=== PATIENT | female | born 1980 | race African-American/Black ===

== ENCOUNTER → 2017-03-05 | Outpatient (CLI) | payer OTHER ==
--- NOTE | 2017-03-05 09:30 | US ---
EXAMINATION TYPE: US pelvic complete DATE OF EXAM: 03/05/2017 8:51 AM COMPARISON: 05/04/2016 CLINICAL HISTORY: N92.6 Irreg Menses,R10.9 R Flank pain, R11.0 Nause. Irregular menses x 1 month, gra rajinder 6, para 4, 1, miscarriage 1, history of and tubal ligation, obese patient TECHNIQUE: Transvaginal (TV) and Transabdominal (TA) Date of LMP: 1 month ago EXAM MEASUREMENTS: Uterus: 10.1 x 5.9 x 6.5 cm Endometrial Stripe: 1.5 cm Right Ovary: 3.7 x 3.3 x 2.4 cm Left Ovary: 2.3 x 2.0 x 1.4 cm 1. Uterus: anteverted, slightly enlarged at 10.1cm, multiple nabothian cysts, heterogeneous echogeni [place] without any definite lesions seen at this time 2. Endometrium: thickened at 1.5cm, small amount of fluid seen in endocervical canal 3. Right Ovary: 2.5 x 2.1 x 2.2cm cystic area 4. Left Ovary: wnl 5. Bilateral Adnexa: wnl 6. Posterior cul-de-sac: wnl Bilateral ovaries not seen on transvaginal exam, patient had trouble tolerating the pressure from t ransvaginal probe IMPRESSION: 1. Endometrial thickening with a small amount of endometrial fluid. 2. Right ovarian cyst likely functional in nature.
--- NOTE | 2017-03-05 09:48 | US ---
EXAMINATION TYPE: US abdomen complete DATE OF EXAM: 03/05/2017 9:12 AM COMPARISON: US CLINICAL HISTORY: N92.6 Irreg Menses,R10.9 R Flank pain, R11.0 Nause. Intermittent right flank pain, obese patient EXAM MEASUREMENTS: Liver Length: 16.8 cm Gallbladder Wall: 0.2 cm CBD: 0.3 cm Spleen: 9.4 cm Right Kidney: 10.3 x 4.5 x 4.9 cm Left Kidney: 10.7 x 5.7 x 5.1 cm Pancreas: visualized portions wnl, tail obscured by overlying midline bowel gas Liver: slightly heterogeneous echogenicity without any definite lesions seen at this time Gallbladder: wnl Evidence for sonographic Frankel's sign: no CBD: visualized portions wnl, limited by overlying bowel gas Spleen: visualized portions wnl, limited by rib shadowing and overlying bowel gas Right Kidney: visualized portions wnl, limited by rib shadowing and overlying bowel gas Left Kidney: visualized portions wnl, limited by rib shadowing and overlying bowel gas Upper IVC: wnl Abd Aorta: visualized portions wnl, limited by overlying midline bowel gas The liver is mildly heterogenous. The intrahepatic portion of the IVC and proximal abdominal aorta ar e within normal limits. There is no evidence of cholelithiasis. Common bile duct is unremarkable. The visualized portions of the pancreas are homogenous. The spleen is unremarkable. Kidneys are sym metric and free of hydronephrosis. No renal lesions are seen. IMPRESSION: 1. Fatty hepatic infiltration.
== END | disposition home or self-care (01) ==
LOC: RADUSWWP 08:23
PROVIDERS: ATTEND Family Medicine
DX: N83.201 Unspecified ovarian cyst, right side (principal); R93.8 Abnormal findings on diagnostic imaging of other specified body structures; N92.6 Irregular menstruation, unspecified; R11.0 Nausea; K76.0 Fatty (change of) liver, not elsewhere classified
CPT/HCPCS: 76700; 76830; 76856

== ENCOUNTER 2018-03-30 19:56 | Emergency (ER) | payer MEDICARE, OTHER ==
[2018-03-30 20:05] VITALS: BP 139/86; PULSE 90; RESP 20; TEMP 98.4
--- NOTE | 2018-03-30 21:10 | ED ---
General Adult HPI - General Chief complaint: Dental/Oral Stated complaint: Dental pain Time Seen by Provider: 03/30/18 20:27 Source: patient, family, RN notes reviewed Mode of arrival: ambulatory Limitations: no limitations - History of Present Illness Initial comments: 37-year-old female presented to the emergency department for a chief complaint of tooth pain 3 days. Patient states she started noticing the pain and made an appointment with a dentist for 4 days from now. Patient still has the appointment. She states the pain is now throbbing and she wanted to get it checked out. Patient denies fevers or chills at home. Patient denies any pain or stiffness in the neck. Patient denies any swelling in the neck or face. Patient has no other complaints at this time including shortness of breath, chest pain, abdominal pain, nausea or vomiting, headache, or visual changes. - Related Data Home Medications Medication Instructions Recorded Confirmed Hydrocodone/Acetaminophen [Vicodin 1 each PO Q12HR PRN 01/16/15 03/30/18 Es 7.5-300 mg Tablet] Ibuprofen [Motrin] 600 mg PO Q8HR PRN 05/12/15 03/30/18 Previous Rx's Medication Instructions Recorded Fluticasone Nasal [place] [Flonase 2 spr EA NOSTRIL DAILY #1 bottle 03/24/16 Nasal [place]] Ibuprofen [Motrin] 600 mg PO Q8HR PRN #20 tab 03/30/18 Penicillin V Potassium [Pen Vee K] 500 mg PO Q6H 10 Days tablet 03/30/18 Allergies Allergy/AdvReac Type Severity Reaction Status Date / Time No Known Allergies Allergy Verified 03/30/18 20:05 Review of Systems ROS Statement: Those systems with pertinent positive or pertinent negative responses have been documented in the HPI. ROS Other: All systems not noted in ROS Statement are negative. Past Medical History Additional Past Medical History / Comment(s): arthritis in knees, gestational diabetes with last , hx IBS, back pain, abdominal hernia, constipation History of Any Multi-Drug Resistant Organisms: None Reported Past Surgical History: Section, Orthopedic Surgery, Tubal Ligation Additional Past Surgical History / Comment(s): knee surgery, breast reduction Past Anesthesia/Blood Transfusion Reactions: Postoperative Nausea & Vomiting ( PONV) Additional Past Anesthesia/Blood Transfusion Reaction / Comment(s): anasthesia lasts into the next day Past Psychological History: No Psychological Hx Reported Smoking Status: Current some day smoker Past Alcohol Use History: None Reported Past Drug Use History: None Reported - Past Family History Mother Family Medical History: Cancer Additional Family Medical History / Comment(s): mother passed from cervical cancer Father Family Medical History: Hypertension General Exam Limitations: no limitations General appearance: alert, in no apparent distress ENT exam: Present: normal exam, mucous membranes moist, TM's normal bilaterally , normal external ear exam. Absent: normal oropharynx (Tooth 1 is tender to percussion and has a filling evident. No drainable abscess noted. Uvula midline. ) Neck exam: Present: normal inspection, full ROM. Absent: tenderness, meningismus, lymphadenopathy Respiratory exam: Present: normal lung sounds bilaterally. Absent: respiratory distress, wheezes, rales, rhonchi, stridor Cardiovascular Exam: Present: regular rate, normal rhythm, normal heart sounds. Absent: systolic murmur, diastolic murmur, rubs, gallop, clicks Course Vital Signs 03/30/18 20:02 Temperature 98.4 F Pulse Rate 90 Respiratory 20 Rate Blood Pressure 139/86 O2 Sat by Pulse 100 Oximetry Medical Decision Making - Medical Decision Making 37 -year-old female process to the emergency determine for chief complaint of toothache 3 days. Patient denies fevers or chills at home. Patient states the pain is throbbing in her right upper jaw. Patient states the pain is radiating somewhat to her ear. No pain or stiffness in the neck. Patient has an appointment with a dentist in 4 days. On exam patient has tenderness to percussion of tooth 1. No drainable abscess noted. Tympanic membrane is nonerythematous. No swelling in the face, jaw, or neck. Patient likely has an abscessing tooth. She will be given penicillin and motrin. patient denies chance of . She is to return to the emergency Department if she starts to develop any stiffness or pain or swelling in the neck or face. Otherwise she will follow-up with the dentist at her scheduled appointment in 4 days. Disposition Clinical Impression: Dental abscess Disposition: HOME SELF-CARE Condition: Good Instructions: Dental Abscess (ED) Additional Instructions: Please take antibiotic as directed. Please return to the emergency department if you have any worsening symptoms or high fevers. Otherwise follow-up with dentist at scheduled appointment on Sunday. Prescriptions: Ibuprofen [Motrin] 600 mg PO Q8HR PRN #20 tab PRN Reason: Pain Penicillin V Potassium [Pen Vee K] 500 mg PO Q6H 10 Days tablet Is patient prescribed a controlled substance at d/c from ED?: No Referrals: Marielos Godoy MD [Primary Care Provider] - 1-2 days Time of Disposition: 21:08
== END 2018-03-30 21:17 | disposition home or self-care (01) ==
LOC: EC 19:56
DX: K04.7 Periapical abscess without sinus (principal); F17.200 Nicotine dependence, unspecified, uncomplicated
CPT/HCPCS: 99282

== ENCOUNTER 2018-10-02 16:18 | Emergency (ER) | payer MEDICARE, OTHER ==
[2018-10-02 16:26] VITALS: TEMP 98.1
--- NOTE | 2018-10-02 16:29 | ED ---
URI HPI - General Chief Complaint: Upper Respiratory Infection Stated Complaint: Cold/congestion Time Seen by Provider: 10/02/18 16:29 Source: patient, RN notes reviewed, old records reviewed Mode of arrival: ambulatory Limitations: no limitations - History of Present Illness Initial Comments: This is a 38-year-old female the ER for evaluation patient presents today for evaluation regards to cough and congestion. Raynaud's cough and congestion feeling and of the weather. Occasional fevers and chills. Due to the progressive. No sick contacts no travel history. She states she just can't shake her cough and runny nose, she states today she was started with some pain in her back after cough or when she takes a deep breath patient is on blood thinners, no travel history no smoking no control MD Complaint: fever, cough, nasal congestion, sinus pain -: days(s) (6) Severity: mild Severity scale (1-10): 4 Quality: aching Consistency: constant Improves With: nothing Worsens With: nothing Associated Symptoms: fever, chills, myalgias, rhinorrhea, nasal congestion, sore throat Treatments Prior to Arrival: none - Related Data Home Medications Medication Instructions Recorded Confirmed Hydrocodone/Acetaminophen [Vicodin 1 each PO Q12HR PRN 01/16/15 03/30/18 Es 7.5-300 mg Tablet] Ibuprofen [Motrin] 600 mg PO Q8HR PRN 05/12/15 03/30/18 Previous Rx's Medication Instructions Recorded Fluticasone Nasal [place] [Flonase 2 spr EA NOSTRIL DAILY #1 bottle 03/24/16 Nasal [place]] Ibuprofen [Motrin] 600 mg PO Q8HR PRN #20 tab 03/30/18 Penicillin V Potassium [Pen Vee K] 500 mg PO Q6H 10 Days tablet 03/30/18 Azithromycin [Zithromax Z-pack] 0 mg PO DIRECTED #1 pack 10/02/18 Benzonatate [Tessalon Perles] 100 mg PO TID PRN #15 capsule 10/02/18 Allergies Allergy/AdvReac Type Severity Reaction Status Date / Time No Known Allergies Allergy Verified 10/02/18 16:27 Review of Systems ROS Statement: Those systems with pertinent positive or pertinent negative responses have been documented in the HPI. ROS Other: All systems not noted in ROS Statement are negative. Past Medical History Additional Past Medical History / Comment(s): arthritis in knees, gestational diabetes with last , hx IBS, back pain, abdominal hernia, constipation History of Any Multi-Drug Resistant Organisms: None Reported Past Surgical History: Section, Orthopedic Surgery, Tubal Ligation Additional Past Surgical History / Comment(s): knee surgery, breast reduction Past Anesthesia/Blood Transfusion Reactions: Postoperative Nausea & Vomiting ( PONV) Additional Past Anesthesia/Blood Transfusion Reaction / Comment(s): anasthesia lasts into the next day Past Psychological History: No Psychological Hx Reported Smoking Status: Current every day smoker Past Alcohol Use History: None Reported Past Drug Use History: None Reported - Past Family History Mother Family Medical History: Cancer Additional Family Medical History / Comment(s): mother passed from cervical cancer Father Family Medical History: Hypertension General Exam Limitations: no limitations General appearance: alert, in no apparent distress Head exam: Present: atraumatic, normocephalic, normal inspection Eye exam: Present: normal appearance, PERRL, EOMI. Absent: scleral icterus, conjunctival injection, periorbital swelling ENT exam: Present: normal exam, mucous membranes moist Neck exam: Present: normal inspection. Absent: tenderness, meningismus, lymphadenopathy Respiratory exam: Present: normal lung sounds bilaterally. Absent: respiratory distress, wheezes, rales, rhonchi, stridor Cardiovascular Exam: Present: regular rate, normal rhythm, normal heart sounds. Absent: systolic murmur, diastolic murmur, rubs, gallop, clicks GI/Abdominal exam: Present: soft, normal bowel sounds. Absent: distended, tenderness, guarding, rebound, rigid Extremities exam: Present: normal inspection, full ROM, normal capillary refill. Absent: tenderness, pedal edema, joint swelling, calf tenderness Back exam: Present: normal inspection Neurological exam: Present: alert, oriented X3, CN II-XII intact Psychiatric exam: Present: normal affect, normal mood Skin exam: Present: warm, dry, intact, normal color. Absent: rash Course Vital Signs 10/02/18 10/02/18 10/02/18 16:24 17:03 17:11 Temperature 98.1 F Pulse Rate 82 88 88 Respiratory 20 Rate Blood Pressure 174/106 O2 Sat by Pulse 97 Oximetry 10/02/18 18:11 Temperature Pulse Rate 82 Respiratory 16 Rate Blood Pressure 148/89 O2 Sat by Pulse 100 Oximetry - Reevaluation(s) Reevaluation #1: Medical record is reviewed Blood pressure is improved prior to arrival with no treatment Medical Decision Making - Medical Decision Making 38-year-old female the ER with upper respiratory infection, we'll treat with antibiotics and discharged home Disposition Clinical Impression: Bronchitis, Upper respiratory infection Disposition: HOME SELF-CARE Condition: Good Instructions: Upper Respiratory Infection (ED) Prescriptions: Azithromycin [Zithromax Z-pack] 0 mg PO DIRECTED #1 pack Benzonatate [Tessalon Perles] 100 mg PO TID PRN #15 capsule PRN Reason: Cough Is patient prescribed a controlled substance at d/c from ED?: No Referrals: Marielos Godoy MD [Primary Care Provider] - 1-2 days
[2018-10-02] MEDS ORDERED: IPRATROPIUM-ALBUTEROL 3 ML NEB INHALATION STA (16:36)
[2018-10-02] MEDS ORDERED: ACET/COD 240MG/24MG LIQ 10 ML SYRG PO ONE (16:36)
[2018-10-02] MEDS ORDERED: IBUPROFEN 800 MG TAB PO STA (16:36)
[2018-10-02] MEDS ORDERED: AZITHROMYCIN 500 MG TAB PO STA (16:36)
--- NOTE | 2018-10-02 17:05 | XR ---
EXAMINATION TYPE: XR chest 2V DATE OF EXAM: 10/02/2018 COMPARISON: 03/24/2016 HISTORY: Cough for one week TECHNIQUE: Frontal and lateral views of the chest are obtained. FINDINGS: There is no heart failure nor confluent pneumonic infiltrate. Costophrenic angles are juliane r. Heart size is normal. Bony thorax is intact. IMPRESSION: Normal chest. No change.
[2018-10-02 18:12] VITALS: BP 148/89; PULSE 82; RESP 16
== END 2018-10-02 18:10 | disposition home or self-care (01) ==
LOC: EC 16:18
DX: J40 Bronchitis, not specified as acute or chronic (principal); J06.9 Acute upper respiratory infection, unspecified; F17.200 Nicotine dependence, unspecified, uncomplicated
CPT/HCPCS: 71046; 94640; 99284

== ENCOUNTER → 2019-06-26 | Outpatient (CLI) | payer MEDICARE, OTHER ==
--- NOTE | 2019-06-26 16:09 | US ---
EXAMINATION TYPE: US pelvic complete DATE OF EXAM: 06/26/2019 COMPARISON: US 2017 CLINICAL HISTORY: R10.9 ABD PAIN,N92.6 IRREG MENSES. Intermittent abdomen pain x 1 month, irregular c ycles, 6, para 4, miscarriage 1, 1, history of and tubal ligation TECHNIQUE: . Transabdominal sonographic images of the pelvis were acquired. Transvaginal sonographi c images were medically necessary to better assess the following anatomy: endometrium and ovaries Date of LMP: 3 weeks ago EXAM MEASUREMENTS: Uterus: 10.8 x 5.6 x 6.9 cm Endometrial Stripe: 1.6 cm Right Ovary: not seen Left Ovary: not seen 1. Uterus: enlarged, anteverted, heterogeneous, multiple nabothian cysts 2. Endometrium: thickened, small amount of fluid in endocervical canal 3. Right Ovary: not seen 4. Left Ovary: not seen 5. Bilateral Adnexa: wnl 6. Posterior cul-de-sac: wnl IMPRESSION: 1. Enlarged uterus, discrete fibroids are not identified.
--- NOTE | 2019-06-26 16:16 | US ---
EXAMINATION TYPE: US abdomen complete DATE OF EXAM: 06/26/2019 COMPARISON: US 2017 CLINICAL HISTORY: R10.9 ABD PAIN,N92.6 IRREG MENSES. Intermittent abdomen pain x 1 month EXAM MEASUREMENTS: Liver Length: 20.2 cm Gallbladder Wall: 0.1 cm CBD: 0.3 cm Spleen: 11.4 cm Right Kidney: 10.4 x 5.0 x 5.0 cm Left Kidney: 11.2 x 5.9 x 5.0 cm Difficult and limited study due to patient body habitus Pancreas: visualized portions wnl, limited by overlying midline bowel gas Liver: enlarged, mildly heterogeneous Gallbladder: wnl Evidence for sonographic Frankel's sign: no CBD: wnl Spleen: wnl Right Kidney: wnl Left Kidney: wnl Upper IVC: wnl Abd Aorta: visualized portions wnl, limited by overlying midline bowel gas IMPRESSION: 1. Visualized abdomen ultrasound is unremarkable.
== END | disposition home or self-care (01) ==
LOC: RADUSWWP 07:28
PROVIDERS: ATTEND Family Medicine
DX: R10.9 Unspecified abdominal pain (principal); N92.6 Irregular menstruation, unspecified
CPT/HCPCS: 76700; 76830; 76856

== ENCOUNTER → 2019-07-18 | Outpatient (CLI) | payer MEDICARE, OTHER ==
--- NOTE | 2019-07-18 07:51 | MR ---
EXAMINATION TYPE: MR knee RT wo con DATE OF EXAM: 07/18/2019 COMPARISON: NONE HISTORY: Pain in right knee / Fall history TECHNIQUE: Multiplanar, multisequence images of the knee is performed without IV contrast. FINDINGS: Exam noted suboptimal secondary to patient's large body habitus. MEDIAL MENISCUS: Anterior and posterior horns are intact without tear. LATERAL MENISCUS: Anterior and posterior horns are intact without tear. CRUCIATE LIGAMENTS: The anterior and posterior cruciate ligaments are intact and unremarkable. COLLATERAL LIGAMENTS: The medial collateral ligament and lateral collateral ligament complex are inta ct and unremarkable. EXTENSOR MECHANISM: Visualized quadriceps and patellar tendons are intact. EFFUSION: No significant suprapatellar joint effusion. POPLITEAL CYST: No popliteal/delgadillo cyst. TRICOMPARTMENT SPACES: Mild to moderate narrowing patellofemoral compartment is seen most prominent i nferiorly. There is mild narrowing and spurring medial tibiofemoral compartment. CARTILAGE: Some chondromalacia patella with thinning of articular cartilage along the posterior infer ior patellar pole. BONE MARROW SIGNAL: Some heterogeneity consistent with red marrow reconversion. OTHER: No additional significant abnormality is appreciated. IMPRESSION: No meniscal or ligamentous tear is seen. [id number] tricompartment degenerative daniel nges somewhat prominent for patient's chronologic age.
== END | disposition home or self-care (01) ==
LOC: RADMRIMAIN 06:14
PROVIDERS: ATTEND Family Medicine
DX: M17.11 Unilateral primary osteoarthritis, right knee (principal); Z91.81 History of falling

== ENCOUNTER 2019-08-12 07:05 | Day surgery (SDC) | payer MEDICARE, OTHER ==
[2019-08-07 16:02] VITALS: BMI 46.5
--- NOTE | 2019-08-11 16:40 | P.HPOB ---
History of Present Illness H&P Date: 08/11/19 Chief Complaint: menorrhagia 39 year old presents for D&C hysteroscopy and endometrial ablation with NovaSure. Review of Systems All systems: negative Constitutional: Denies chills, Denies fever Eyes: denies blurred vision, denies pain Ears, nose, mouth and throat: Denies headache, Denies sore throat Cardiovascular: Denies chest pain, Denies shortness of breath Respiratory: Denies cough Gastrointestinal: Denies abdominal pain, Denies diarrhea, Denies nausea, Denies vomiting Genitourinary: Denies dysuria, Denies hematuria Musculoskeletal: Denies myalgias Integumentary: Denies pruritus, Denies rash Neurological: Denies numbness, Denies weakness Psychiatric: Denies anxiety, Denies depression Endocrine: Denies fatigue, Denies weight change Past Medical History Past Medical History: Osteoarthritis (OA) Additional Past Medical History / Comment(s): heavy menses over greater than a year,arthritis in knees, gestational diabetes with last , hx IBS, back pain, abdominal hernia, constipation History of Any Multi-Drug Resistant Organisms: None Reported Past Surgical History: Section, Orthopedic Surgery, Tubal Ligation Additional Past Surgical History / Comment(s): emma knee surgery, breast reduction Past Anesthesia/Blood Transfusion Reactions: Postoperative Nausea & Vomiting (PONV) Additional Past Anesthesia/Blood Transfusion Reaction / Comment(s): Nausea lasts into the next day.No hx blood transfusion Smoking Status: Current some day smoker - Past Family History Mother Family Medical History: Cancer Additional Family Medical History / Comment(s): mother passed from cervical cancer Father Family Medical History: Hypertension Medications and Allergies Home Medications Medication Instructions Recorded Confirmed Type Ergocalciferol [Vitamin D2] 50,000 unit PO Q7D 08/07/19 08/07/19 History Hydrocodone/Acetaminophen [[place] 1 tab PO TID PRN 08/07/19 08/07/19 History 7.5-325] Allergies Allergy/AdvReac Type Severity Reaction Status Date / Time No Known Allergies Allergy Verified 08/07/19 15:54 Exam Osteopathic Statement: *. No significant issues noted on an osteopathic structural exam other than those noted in the History and Physical/Consult. HEart: RRR Lungs: CTAB Abdomen: soft, nontender Extremeties: neg andrez's Assessment and Plan (1) Menorrhagia Status: Acute Code(s): N92.0 - EXCESSIVE AND FREQUENT MENSTRUATION WITH REGULAR CYCLE SNOMED Code(s): 747540287 Plan: 1. D&C hysteroscopy and endometrial ablation with NovaSure. WE discussed all Risks and benefits and alternatives of the procedure including bleeding, infection, damage to other organs, even .
[~2019-08-12 07:05] MED LIST: DEXAMETHASONE SOD PHOSPHATE 10 MG/ML 1 ML VIAL IV ONE; HYDROmorphone 0.5 MG/0.5 ML SYRINGE IVP PRN; LACTATED RINGERS 1,000 ML IV SCH; MIDAZOLAM 2 MG/2 ML VIAL IV PRN; ONDANSETRON 4 MG/2 ML VIAL IVP ONE; Pre Op ABX Message 1 EACH MISC MISCELLANE ONE; SCOPOLAMINE 1.5MG/72HR PATCH TRANSDERM ONE
[2019-08-12 07:19] VITALS: RESP 16
[2019-08-12] MEDS ORDERED: LIDOCAINE 1% 20 ML VIAL (10MG/ML) FOR IV START INTRADERMA ONE (07:23)
[2019-08-12] MEDS ORDERED: SUCCINYLCHOLINE CHLORIDE 100 MG/5 ML SYR IV ONE (07:48)
[2019-08-12] MEDS ORDERED: KETOROLAC 30 MG/ML 1 ML VIAL ONE (07:48)
[2019-08-12] MEDS ORDERED: MIDAZOLAM 2 MG/2 ML VIAL ONE (07:48)
[2019-08-12] MEDS ORDERED: LIDOCAINE 1% INJ 10MG/ML (20 ML MDV) ONE (07:48)
[2019-08-12] MEDS ORDERED: fentaNYL (PF) 50 MCG/ML 2 ML AMP ONE (07:48)
[2019-08-12] MEDS ORDERED: PROPOFOL 10 MG/ML 20 ML VIAL IV ONE (07:48)
--- NOTE | 2019-08-12 08:26 | P.OP ---
Date of Procedure: 08/12/19 Preoperative Diagnosis: 1. Menorrhagia Postoperative Diagnosis: 1. Menorrhagia Procedure(s) Performed: D&C, hysteroscopy, endometrial ablation with NovaSure Anesthesia: JI Surgeon: Raysa García Estimated Blood Loss (ml): 2 IV fluids (ml): 300 Urine output (ml): 15 Pathology: other (Endometrial curettings) Condition: stable Disposition: PACU Operative Findings: Uterus sounded to 10 cm. Cavity length 6.5 cm, width 4 cm, power 143 W, time of ablation 58 seconds. Adequate ablation after the NovaSure. Description of Procedure: Patient is taken the operating room where general anesthesia was obtained without difficulty. She was prepped and draped in normal sterile fashion dorsal lithotomy position, legs placed in the candy cane stirrups. Bladder was drained of all urine. Weighted speculum placed in the vagina and the anterior lip the cervix was grasped with serial tooth tenaculum. The uterus sounded to 10 cm and the cervix under 3.5 cm making the cavity length 6.5 cm. The cervix was dilated to #8 Hegar dilator. Hysteroscopy was then performed. Both ostia were visualized and there was a smooth contour of the uterus. Sharp curet was then gently used to obtain endometrial curettings. The NovaSure was introduced into the uterus with a cavity length of 6.5 cm, width 4 cm. after cavity assessment was passed, the time of ablation was 58 seconds at 143 W. Hysteroscopy was agai n performed and adequate ablation was noted. All instruments removed from the vagina. Patient tolerated the procedure well, sponge and instrument counts were correct 2 and she was taken to recovery in stable condition.
[2019-08-12 08:35] VITALS: TEMP 97
[2019-08-12 09:51] VITALS: BP 132/77; PULSE 77
== END 2019-08-12 10:15 | disposition home or self-care (01) ==
LOC: OR 07:05
PROVIDERS: ATTEND Obstetrics & Gynecology
DX: N92.1 Excessive and frequent menstruation with irregular cycle (principal); K21.9 Gastro-esophageal reflux disease without esophagitis; M19.90 Unspecified osteoarthritis, unspecified site; K58.9 Irritable bowel syndrome, unspecified; F17.200 Nicotine dependence, unspecified, uncomplicated; Z98.51 Tubal ligation status; Z86.32 Personal history of gestational diabetes; Z98.890 Other specified postprocedural states; Z80.49 Family history of malignant neoplasm of other genital organs; Z82.49 Family history of ischemic heart disease and other diseases of the circulatory system
CPT/HCPCS: 81025; 88305; 58563; J2250; J1100; J2405; J2001; J3010; J1885; J0330; J2704

== ENCOUNTER → 2020-07-15 | Outpatient (CLI) | payer MEDICARE, OTHER ==
--- NOTE | 2020-07-15 10:08 | US ---
EXAMINATION TYPE: US abdomen complete DATE OF EXAM: 07/15/2020 COMPARISON: US 06/26/19 CT 01/22/15 CLINICAL HISTORY: Pelvic pain abd pain R39.15, R10.2, R10.30. EXAM MEASUREMENTS: Liver Length: 19.5 cm Gallbladder Wall: 0.2 cm CBD: 0.3 cm Spleen: 8.6 cm Right Kidney: 10.5 x 5.0 x 5.4 cm Left Kidney: 10.1 x 5.6 x 4.7 cm Pancreas: wnl as visualized Liver: Dense; Fatty Gallbladder: wnl Evidence for sonographic Frankel's sign: No CBD: wnl Spleen: wnl Right Kidney: No hydronephrosis or masses seen Left Kidney: Possible mild hydronephrosis; no masses Upper IVC: wnl Abd Aorta: wnl Exam limited by patient large body habitus The intrahepatic portion of the IVC and proximal abdominal aorta are within normal limits. There is no evidence of cholelithiasis. Common bile duct is unremarkable. The visualized portions of the [place] are homogenous. The spleen is unremarkable. No renal lesions are seen. IMPRESSION: 1. Mild left-sided hydronephrosis 2. Fatty liver
--- NOTE | 2020-07-15 10:50 | US ---
EXAMINATION TYPE: US pelvic complete transvag DATE OF EXAM: 07/15/2020 COMPARISON: US 06/26/19 CT 01/22/15 CLINICAL HISTORY: Pelvic pain abd pain R39.15, R10.2, R10.30. LLQ pain x 1 mth; Hx of , tubal ligation, and uterine ablation. TECHNIQUE: Transvaginal (TV) and Transabdominal (TA) . Transabdominal sonographic images of the pelvis were acquired. Transvaginal sonographic images were medically necessary to better assess the following anatomy: Endometrium, Ovaries Date of LMP: 1 year ago EXAM MEASUREMENTS: Uterus: 11.7 x 5.8 x 7.4 cm Endometrial Stripe: 0.7 cm Right Ovary: 2.6 x 1.6 x 1.5 cm Left Ovary: 2.0 x 1.7 x 2.6 cm 1. Uterus: Anteverted Nabothian cysts 2. Endometrium: Echogenic debris visualized within measuring 1.9 cm 3. Right Ovary: wnl as visualized 4. Left Ovary: wnl 5. Bilateral Adnexa: wnl 6. Posterior cul-de-sac: wnl Exam limited by patient large body habitus. IMPRESSION: Debris or mass within the endometrial cavity. Correlate clinically and with direct visualization. MTDD
== END | disposition home or self-care (01) ==
LOC: RADUSWWP 07:28
PROVIDERS: ATTEND Family Medicine
DX: N13.30 Unspecified hydronephrosis (principal); K76.0 Fatty (change of) liver, not elsewhere classified; R10.2 Pelvic and perineal pain; R10.30 Lower abdominal pain, unspecified; R39.15 Urgency of urination
CPT/HCPCS: 76700; 76830; 76856

== ENCOUNTER → 2020-07-26 | Outpatient (CLI) | payer MEDICARE, OTHER ==
--- NOTE | 2020-07-26 16:07 | CT ---
EXAMINATION TYPE: CT abdomen pelvis wo con DATE OF EXAM: 07/26/2020 COMPARISON: Ultrasound 07/15/2020, prior CT 01/22/2015 HISTORY: Hydronephrosis, pt c/o pain LT side into back and RT back pain CT DLP: 1239.2 mGycm Automated exposure control for dose reduction was used. TECHNIQUE: Helical acquisition of images from the lung bases through the pelvis. FINDINGS: Lack of intravenous contrast could compromise sensitivity. LUNG BASES: There is some increased attenuation at the lung bases, there may be atelectasis or scarri ng along the left hemidiaphragm, there is no pleural or pericardial effusion, some basilar atelectasi s or scarring also present on the right, posterior diaphragmatic hernia contains fat. AORTA: No significant abnormality is appreciated. LIVER/GB: The liver is enlarged.The gallbladder is unremarkable.. PANCREAS: No significant abnormality is seen. SPLEEN: No significant abnormality is seen. ADRENALS: No significant abnormality is seen. KIDNEYS: No significant abnormality is seen. REPRODUCTIVE ORGANS: Uterus is somewhat bulky, there may be underlying fibroids. URINARY BLADDER: No significant abnormality is seen. BOWEL: No significant abnormality is seen. FREE AIR: No Free Air is visible. ASCITES: None visible. PELVIC ADENOPATHY: None visualized. RETROPERITONEAL ADENOPATHY: No Retroperitoneal Adenopathy visible. OSSEOUS STRUCTURES: No significant abnormality is seen. IMPRESSION: NONCONTRAST EXAM. POSSIBLE BASILAR ATELECTASIS OR SCARRING. HEPATOMEGALY.
== END | disposition home or self-care (01) ==
LOC: RADCTMAIN 15:13
PROVIDERS: ATTEND Urology
DX: R16.0 Hepatomegaly, not elsewhere classified (principal)
CPT/HCPCS: 74176

== ENCOUNTER → 2020-08-26 | Outpatient (CLI) | payer MEDICARE, OTHER ==
[2020-08-26 15:18] LABS: Basophils # (A) 0.1 k/uL (0-0.2); Basophils % (A) 1 %; Eosinophils # (A) 0.3 k/uL (0-0.7); Eosinophils % (A) 3 %; HCT 42.3 % (34.0-46.0); HGB 13.5 gm/dL (11.4-16.0); Lymphocytes # (A) 2.2 k/uL (1.0-4.8); Lymphocytes % (A) 27 %; MCH 29.9 pg (25.0-35.0); MCHC 31.9 g/dL (31.0-37.0); MCV 93.6 fL (80.0-100.0); Mean Platelet Volume 7.6; Monocytes # (A) 0.4 k/uL (0-1.0); Monocytes % (A) 5 %; Neutrophils # (A) 5.3 k/uL (1.3-7.7); Neutrophils % (A) 63 %; Platelet Count 297 k/uL (150-450); RBC 4.52 m/uL (3.80-5.40); WBC 8.4 k/uL (3.8-10.6)
[2020-08-26 15:29] LABS: African American GFR (CKD) >90 (>60 ml/min/1.73 sqM); Anion Gap 5 mmol/L; Blood Urea Nitrogen 16 mg/dL (7-17); Calcium 9.2 mg/dL (8.4-10.2); Carbon Dioxide 28 mmol/L (22-30); Chloride 106 mmol/L (98-107); Glucose 95 mg/dL (74-99); Non-African American GFR(CKD) 82 (>60 ml/min/1.73 sqM); Potassium 4.5 mmol/L (3.5-5.1); Sodium 139 mmol/L (137-145)
== END | disposition home or self-care (01) ==
LOC: LABPAT 14:00
PROVIDERS: ATTEND Obstetrics & Gynecology
DX: Z01.818 Encounter for other preprocedural examination (principal)
CPT/HCPCS: 80048; 85025

== ENCOUNTER 2020-09-02 05:33 | Day surgery (SDC) | payer MEDICARE, OTHER ==
[2020-08-27 10:43] VITALS: BMI 45.7
--- NOTE | 2020-09-02 05:30 | P.HPOB ---
History of Present Illness H&P Date: 09/02/20 Chief Complaint: pelvic pain 40 year old presents for TLH BS with da warner and diagnostic cystoscopy, possible CLINT BSO. SHe has pelvic pain since a few months after her ablation. From her US, I expect it is hematometria and postablative syndrome. She presents today for definitive treatment. Review of Systems All systems: negative Constitutional: Denies chills, Denies fever Eyes: denies blurred vision, denies pain Ears, nose, mouth and throat: Denies headache, Denies sore throat Cardiovascular: Denies chest pain, Denies shortness of breath Respiratory: Denies cough Gastrointestinal: Denies abdominal pain, Denies diarrhea, Denies nausea, Denies vomiting Genitourinary: Denies dysuria, Denies hematuria Musculoskeletal: Denies myalgias Integumentary: Denies pruritus, Denies rash Neurological: Denies numbness, Denies weakness Psychiatric: Denies anxiety, Denies depression Endocrine: Denies fatigue, Denies weight change Past Medical History Past Medical History: Osteoarthritis (OA) Additional Past Medical History / Comment(s): arthritis in knees, gestational diabetes with last , hx IBS, back pain, abdominal hernia, constipation, abdominal discomfort History of Any Multi-Drug Resistant Organisms: None Reported Past Surgical History: Section, Orthopedic Surgery, Tubal Ligation, Uterine Ablation Additional Past Surgical History / Comment(s): arthroscopic emma knee surgery, lt knee replacement, breast reduction Past Anesthesia/Blood Transfusion Reactions: Motion Sickness, Postoperative Nausea & Vomiting (PONV) Additional Past Anesthesia/Blood Transfusion Reaction / Comment(s): Nausea lasts into the next day.No hx blood transfusion Smoking Status: Current every day smoker - Past Family History Mother Family Medical History: Cancer Additional Family Medical History / Comment(s): mother passed from cervical cancer Father Family Medical History: Hypertension Medications and Allergies Home Medications Medication Instructions Recorded Confirmed Type No Known Home Medications 08/27/20 08/27/20 History Allergies Allergy/AdvReac Type Severity Reaction Status Date / Time No Known Allergies Allergy Verified 08/27/20 10:28 Exam Osteopathic Statement: *. No significant issues noted on an osteopathic structural exam other than those noted in the History and Physical/Consult. HEart: RRR Lungs: CTAB Abdomen: soft, nontender Extremeties: neg andrez's Assessment and Plan (1) Pelvic pain Status: Acute Code(s): R10.2 - PELVIC AND PERINEAL PAIN SNOMED Code(s): 09852621 (2) Post endometrial ablation syndrome Status: Acute Code(s): N99.85 - POST ENDOMETRIAL ABLATION SYNDROME SNOMED Code(s): 938328933 Plan: 1. Total laparoscopic hysterectomy and bilateral salpingectomy using da warner, diagnostic cystoscopy, possible CLINT BSO
[~2020-09-02 05:33] MED LIST changes: -DEXAMETHASONE SOD PHOSPHATE 10 MG/ML 1 ML VIAL IV ONE; -HYDROmorphone 0.5 MG/0.5 ML SYRINGE IVP PRN; -LACTATED RINGERS 1,000 ML IV SCH; -MIDAZOLAM 2 MG/2 ML VIAL IV PRN; -ONDANSETRON 4 MG/2 ML VIAL IVP ONE; -Pre Op ABX Message 1 EACH MISC MISCELLANE ONE; -SCOPOLAMINE 1.5MG/72HR PATCH TRANSDERM ONE; +ceFAZolin 3 GM in SODIUM CHLORIDE 0.9% 100 ML IVPB ONE
[2020-09-02] MEDS ORDERED: ONDANSETRON 4 MG/2 ML VIAL IVP ONE (05:36)
[2020-09-02] MEDS ORDERED: HYDROmorphone 0.5 MG/0.5 ML SYRINGE IVP PRN (05:36)
[2020-09-02] MEDS ORDERED: DEXAMETHASONE SOD PHOSPHATE 10 MG/ML 1 ML VIAL IV ONE (05:36)
[2020-09-02] MEDS ORDERED: LACTATED RINGERS 1,000 ML IV ONE ×2 (06:07→08:33)
[2020-09-02] MEDS ORDERED: LIDOCAINE 1% (10MG/ML) FOR IV START INTRADERMA ONE (06:08)
[2020-09-02] MEDS ORDERED: SCOPOLAMINE 1.5MG/72HR PATCH TRANSDERM ONE (06:08)
[2020-09-02] MEDS ORDERED: PROPOFOL 10 MG/ML 20 ML VIAL IV ONE (07:15)
[2020-09-02] MEDS ORDERED: ROCURONIUM 10 MG/ML (10 ML VIAL) IV ONE (07:15)
[2020-09-02] MEDS ORDERED: NEOSTIGMINE 1 MG/ML 10 ML VIAL ONE (07:15)
[2020-09-02] MEDS ORDERED: SUCCINYLCHOLINE CHLORIDE 100 MG/5 ML SYR IV ONE (07:15)
[2020-09-02] MEDS ORDERED: MIDAZOLAM 2 MG/2 ML VIAL ONE (07:15)
[2020-09-02] MEDS ORDERED: HYDROmorphone (PF) 1 MG/ML ONE (07:15)
[2020-09-02] MEDS ORDERED: fentaNYL (PF) 50 MCG/ML 2 ML AMP ONE (07:15)
[2020-09-02] MEDS ORDERED: KETOROLAC 15 MG/ML 1 ML VIAL ONE (07:15)
[2020-09-02] MEDS ORDERED: GLYCOPYRROLATE 0.2 MG/ML 2 ML VIAL ONE (07:15)
[2020-09-02] MEDS ORDERED: BUPIVACAINE (PF) 0.25% 30 ML VIAL SQ ONE ×2 (07:51→08:49)
--- NOTE | 2020-09-02 09:28 | P.OP ---
Date of Procedure: 09/02/20 Preoperative Diagnosis: 1. Post-endometrial ablative syndrome 2. Pelvic pain Postoperative Diagnosis: 1. Post-endometrial ablative syndrome 2. Pelvic pain Procedure(s) Performed: Total laparoscopic hysterectomy and bilateral salpingectomy using da Santo, diagnostic cystoscopy Anesthesia: JI Surgeon: Raysa García Front Office Clerk #1: Mynor Bell Estimated Blood Loss (ml): 100 IV fluids (ml): 1,000 Urine output (ml): 100 Pathology: other (Uterus, cervix, bilateral fallopian tubes) Condition: stable Disposition: PACU Operative Findings: Enlarged uterus with the hematosalpinx Description of Procedure: Patient taken the operating room where general anesthesia was obtained without difficulty. She is prepped and draped in normal sterile fashion dorsal lithotomy position, legs placed in the Justice stirrups. Weighted speculum placed in the vagina and the anterior lip the cervix was grasped with single-tooth tenaculum. The uterus sounded to 9 cm and the cervix diameter was 3 cm. The appropriate manipulator tip and ring were placed on the Majo manipulator. The Majo manipulator was then placed in the uterus. العلي catheter was also placed. Attention was then turned to the abdomen and gloves were changed. A 5 mm supraumbilical incision was made the scalpel and a 5 mm optical trocar was placed under direct visualization. 10 cm to the right of this and 2 cm down a 5 mm incision was made and 8 mm da Santo port was placed under direct visualization. Same measurements on the opposite side of the patient's abdomen, the 5 mm incision was made and 8 mm da Santo port was placed under direct visualization. In the left upper quadrant a 10 mm incision was made and a 10 mm optical trocar was placed under direct visualization. The 5 mm optical trocar was then replaced with the 8 mm da Santo camera port. The robot was docked on patient's right side. The camera was introduced and then the monopolar curved scissor and [place] bipolar placed under direct visualization. I broke scrub and went to the physician console. Survey of the pelvis revealed a little bit of old blood in the cul-de-sac, the fallopian tubes were filled with old blood, some filmy adhesions from the anterior uterine wall to the anterior pelvis. The left mesosalpinx was cauterized with the [place] bipolar and cut with the monopolar curved scissors in order to dissect the fallopian tube. The left utero-ovarian ligament was cauterized with the [place] bipolar and cut with the monopolar curved scissors. The left round ligament was cauterized with the [place] bipolar and cut with monopolar curved scissors. The posterior leaf of the broad ligament was taken down using the monopolar curved scissors. Anterior leaf of the broad ligament was then taken down using the monopolar curved scissors. The uterine artery was cauterized with the [place] bipolar and cut with monopolar curved scissors. The bladder flap was then started using the monopolar curved scissors. Attention was then turned to the right side of the patient's anatomy and the The right mesosalpinx was cauterized with the [place] bipolar and cut with the monopolar curved scissors in order to dissect the fall opian tube. The right utero-ovarian ligament was cauterized with the [place] bipolar and cut with the monopolar curved scissors. The right round ligament was cauterized with the [place] bipolar and cut with monopolar curved scissors. Posterior leaf of the broad ligament was taken down using the monopolar curved scissors and the anterior leaf was taken down using the monopolar curved scissors. The uterine artery was cauterized the [place] bipolar cut with monopolar curved scissors. The bladder flap was then finished on this side. Anterior colpotomy was made using the monopolar curved scissors. The rest of the uterus was from the vaginal cuff by following the ring around with the monopolar curved scissors through the uterosacral ligaments back to the anterior portion. Once the uterus and cervix were amputated they were pulled through the vaginal cuff. Hemostasis was assured. The instruments were changed for the Cardier forcep and the latoya suture cut. The vaginal cuff was then closed using O stratafix barbed suture in a running fashion. Hemostasis was again assured and the pelvis was irrigated. All instruments were removed from the abdomen and the robot was undocked. I scrubbed back in to perform a cystoscopy. There were jets from both ureteral orifices. The abdominal incisions were closed with 4-0 Vicryl in a subcuticular fashion. Patient tolerated the procedure well, sponge and instrument counts correct 2 and she was taken to recovery room in stable condition condition
[2020-09-02] MEDS ORDERED: HYDROmorphone 1 MG/ML 1 ML SYRINGE IVP ONE (09:36)
[2020-09-02] MEDS ORDERED: ONDANSETRON 4 MG/2 ML VIAL IVP PRN (10:59)
[2020-09-02] MEDS ORDERED: SIMETHICONE 80 MG CHEWABLE PO PRN (10:59)
[2020-09-02] MEDS ORDERED: ZOLPIDEM 5 MG TAB PO PRN (10:59)
[2020-09-02] MEDS ORDERED: Acetaminophen-Codeine 300-30mg TAB PO PRN (10:59)
[2020-09-02] MEDS ORDERED: KETOROLAC 15 MG/ML 1 ML VIAL IVP PRN (10:59)
[2020-09-02 14:06] VITALS: RESP 16
[2020-09-02] MEDS: Acetaminophen-Codeine 300-30mg TAB PO PRN (14:13)
[2020-09-02] MEDS: IBUPROFEN 600 MG TAB PO PRN ×2 (16:47→22:19)
[2020-09-02 22:02] VITALS: BP 137/67; PULSE 87; TEMP 98
[2020-09-02] MEDS: LACTATED RINGERS 1,000 ML IV SCH (22:10)
[2020-09-03] MEDS: Acetaminophen-Codeine 300-30mg TAB PO PRN ×2 (00:30→08:19)
[2020-09-03] MEDS: SENNOSIDES-DOCUSATE SODIUM 1 EACH TAB PO SCH ×2 (01:32→09:30)
[2020-09-03] MEDS: IBUPROFEN 600 MG TAB PO PRN (06:17)
[2020-09-03 07:10] LABS: Basophils % (A) 0 %; Eosinophils # (A) 0.1 k/uL (0-0.7); Eosinophils % (A) 0 %; HCT 37.1 % (34.0-46.0); HGB 11.7 gm/dL (11.4-16.0); Lymphocytes # (A) 2.4 k/uL (1.0-4.8); Lymphocytes % (A) 16 %; MCH 29.7 pg (25.0-35.0); MCHC 31.6 g/dL (31.0-37.0); Mean Platelet Volume 7.8; Monocytes # (A) 0.9 k/uL (0-1.0); Monocytes % (A) 6 %; Neutrophils # (A) 11.8 k/uL (1.3-7.7); Neutrophils % (A) 77 %; Platelet Count 303 k/uL (150-450); RBC 3.95 m/uL (3.80-5.40); WBC 15.3 k/uL (3.8-10.6)
--- NOTE | 2020-09-03 07:38 | P.DS ---
Providers Date of admission: 09/02/20 Expected date of discharge: 09/03/20 Attending physician: Raysa Garcaí Primary care physician: Marielos Godoy - Discharge Diagnosis(es) (1) Pelvic pain Current Visit: No Status: Resolved (2) Post endometrial ablation syndrome Current Visit: No Status: Resolved (3) History of robot-assisted laparoscopic hysterectomy Current Visit: Yes Status: Acute Hospital Course: Patient presented for total laparoscopic hysterectomy and bilateral salpingectomy for post endometrial ablative syndrome. She underwent this procedure without complication. Her incisions are clean, dry, intact. She is tolerating a regular diet and passing flatus. She is ambulating voiding without difficulty. She denies nausea, vomiting, chest pain, shortness of breath or calf pain. Patient will be discharged home postoperative day #1 in stable condition to follow-up with me in 3 weeks. Plan - Discharge Summary Discharge Rx Participant: No New Discharge Prescriptions: New Ibuprofen [Motrin] 600 mg PO Q6HR PRN #30 tab PRN Reason: Mild Discomfort Acetaminophen-Codeine 300-30mg [Tylenol w/codeine #3] 2 each PO Q6HR PRN #24 tab PRN Reason: Severe Pain No Action HYDROcodone/APAP 7.5-325MG [[place] 7.5-325] 1 tab PO Q4-6H PRN PRN Reason: Pain Discharge Medication List HYDROcodone/APAP 7.5-325MG [[place] 7.5-325] 1 tab PO Q4-6H PRN 09/02/20 [History] Acetaminophen-Codeine 300-30mg [Tylenol w/codeine #3] 2 each PO Q6HR PRN #24 tab 09/03/20 [Rx] Ibuprofen [Motrin] 600 mg PO Q6HR PRN #30 tab 09/03/20 [Rx] Follow up Appointment(s)/Referral(s): Raysa García DO [Doctor of Osteopathic Medicine] - 3 Weeks Patient Instructions/Handouts: *[facility] - (Anesthesia) Discharge Instructions Outpatient Surgery, *[facility] - Scopalamine Patch Instructions Discharge Disposition: HOME SELF-CARE
[2020-09-03] MEDS: LACTATED RINGERS 1,000 ML IV SCH (09:30)
== END 2020-09-03 10:15 | disposition home or self-care (01) ==
LOC: OR 05:33 → 4FBP 08:53 → OR 09-03 10:15
PROVIDERS: ATTEND Obstetrics & Gynecology
DX: N99.85 Post endometrial ablation syndrome (principal); M19.90 Unspecified osteoarthritis, unspecified site; Z86.32 Personal history of gestational diabetes; K58.9 Irritable bowel syndrome, unspecified; Z98.891 History of uterine scar from previous surgery; Z98.51 Tubal ligation status; Z96.652 Presence of left artificial knee joint; Z98.890 Other specified postprocedural states; Z87.891 Personal history of nicotine dependence; Z80.49 Family history of malignant neoplasm of other genital organs; Z82.49 Family history of ischemic heart disease and other diseases of the circulatory system
CPT/HCPCS: 81025; 85025; 88307; 58571; J2250; J1100; J2710; J0690; J2405; J3010; J1170 ×2; J1885; J0330; J2704; 86850; 86900; 86901

== ENCOUNTER 2020-10-13 07:06 | Day surgery (SDC) | payer MEDICARE, OTHER ==
[2020-10-12 09:05] VITALS: BMI 44.9
[~2020-10-13 07:06] MED LIST changes: +DEXAMETHASONE SOD PHOSPHATE 4 MG/ML 1 ML VIAL IV ONE; +HYDROmorphone 0.5 MG/0.5 ML SYRINGE IVP PRN; +LACTATED RINGERS 1,000 ML IV SCH; +ONDANSETRON 4 MG/2 ML VIAL IVP ONE; -ceFAZolin 3 GM in SODIUM CHLORIDE 0.9% 100 ML IVPB ONE
[2020-10-13 07:23] VITALS: RESP 16; TEMP 97
[2020-10-13] MEDS ORDERED: PROPOFOL 10 MG/ML 20 ML VIAL IV ONE (07:53)
--- NOTE | 2020-10-13 08:03 | P.PCN ---
Date of Procedure: 10/13/20 Procedure(s) Performed: BRIEF HISTORY: Patient is a 40-year-old, pleasant, male scheduled for an upper endoscopy as a part of evaluation of chronic intermittent epigastric pain for the last 3 years duration. She tried Prilosec in the past with no help. PROCEDURE PERFORMED: Esophagogastroduodenoscopy. With biopsy PREOPERATIVE DIAGNOSIS: Chronic intermittent epigastric pain of 3 years duration. IV sedation per anesthesia. PROCEDURE: After informed consent was obtained, the patient was brought into the endoscopy unit. IV sedation was administered by Anesthesia under continuous monitoring. Initially the Olympus GIF-140 video endoscope was inserted into the mouth. Esophagus intubated without any difficulty. It was gradually advanced into the stomach and duodenum and carefully examined. The bulb and the second part of the duodenum mild duodenitis with patchy areas of atrophic-appearing mucosa and hence biopsies were done to evaluate for celiac disease.. The scope at this time was withdrawn to the stomach, adequately insufflated with air, and upon careful examination, mucosa of the antrum, had linear areas of erythema in the antrum was biopsied. The body, cardia and the fundus appeared normal. The scope was then withdrawn into the esophagus. The GE junction was located at 41 cm from the incisors. The esophagus appeared normal. There were no erosions or ulcerations seen , biopsies were done from the distal esophagus and the patient tolerated the procedure well. IMPRESSION: 1. Antral Gastritis. 2. Mild duodenitis. RECOMMENDATIONS: The findings of this examination were discussed with the patient well as her family. She was advised to follow with the biopsy result.. She will be seen in office in 3-4
[2020-10-13 08:22] VITALS: BP 113/79; PULSE 62
== END 2020-10-13 08:38 | disposition home or self-care (01) ==
LOC: ORWHC2ENDO 07:06
PROVIDERS: ATTEND Internal Medicine Gastroenterology
DX: K29.50 Unspecified chronic gastritis without bleeding (principal); K20.90 Esophagitis, unspecified without bleeding; K29.80 Duodenitis without bleeding; G89.29 Other chronic pain; F17.200 Nicotine dependence, unspecified, uncomplicated; Z79.891 Long term (current) use of opiate analgesic; Z86.32 Personal history of gestational diabetes; Z91.89 Other specified personal risk factors, not elsewhere classified
CPT/HCPCS: 88305; 43239; J1100; J2405; J2704

== ENCOUNTER 2021-09-22 16:20 | Emergency (ER) | payer MEDICARE, BC, OTHER ==
[2021-09-22 17:47] VITALS: BP 118/78
[2021-09-22] MEDS ORDERED: ACETAMINOPHEN TAB 500 MG TAB PO STA (17:50)
[2021-09-22] MEDS ORDERED: KETOROLAC 30 MG/ML 1 ML VIAL IVP STA (19:29)
[2021-09-22] MEDS ORDERED: guaiFENesin-DM 600/30MG 1 EACH TAB.ER.12H PO STA (19:29)
[2021-09-22] MEDS ORDERED: ALBUTEROL HFA INHALER INHALATION STA (19:29)
[2021-09-22] MEDS ORDERED: SODIUM CHLORIDE 0.9% 1,000 ML IV ONE (19:29)
[2021-09-22] MEDS ORDERED: SODIUM CHLORIDE 0.9% 50 ML IVPB ONE (19:45)
[2021-09-22] MEDS ORDERED: BAMLANIVIMAB (EUA) 700 MG, ETESEVIMAB (EUA) 1,400 MG in SODIUM CHLORIDE 0.9% 50 ML IVPB ONE (20:00)
--- NOTE | 2021-09-22 20:03 | ED ---
General Adult HPI - General Chief complaint: Shortness of Breath Stated complaint: SOB, loss of appetite Time Seen by Provider: 09/22/21 19:11 Source: patient Mode of arrival: ambulatory Limitations: no limitations - History of Present Illness Initial comments: 41-year-old female patient presents to the emergency department today for evaluation of cough, shortness of breath, body aches for the last week. States she is concerned she has COVID-19. She denies sputum production or hemoptysis with her cough. She is unsure if she's had fevers. States she has been taking tylenol. She reports intermittent diarrhea. No nausea or vomiting. States she has poor appetite. Denies any abdominal pain. Patient denies any recent rash, back pain, numbness, tingling, dizziness, weakness, hematuria, dysuria, urinary urgency, urinary frequency, headache, visual changes, or any other complaints. - Related Data Home Medications Medication Instructions Recorded Confirmed HYDROcodone/APAP 7.5-325MG [[place] 1 tab PO QID PRN 09/02/20 09/22/21 7.5-325] Acetaminophen Tab [Tylenol Tab] 500 mg PO Q6H PRN 09/22/21 09/22/21 Ascorbic Acid [Vitamin C] 1,000 mg PO DAILY 09/22/21 09/22/21 Cholecalciferol [Vitamin D3 (25 25 mcg PO DAILY 09/22/21 09/22/21 Mcg = 1000 Iu)] Loratadine [Claritin] 10 mg PO DAILY PRN 09/22/21 09/22/21 Vitamin B Complex 1 cap PO DAILY 09/22/21 09/22/21 Previous Rx's Medication Instructions Recorded Albuterol Sulfate [Proair Hfa] 1 - 2 puff INHALATION Q6HR PRN 09/22/21 #8.5 gm Ibuprofen [Motrin] 600 mg PO Q8HR PRN #30 tab 09/22/21 guaiFENesin-DM 600/30MG [Mucinex 2 each PO Q12HR PRN #20 tab 09/22/21 Dm] Allergies Allergy/AdvReac Type Severity Reaction Status Date / Time No Known Allergies Allergy Verified 09/22/21 19:41 Review of Systems ROS Statement: Those systems with pertinent positive or pertinent negative responses have been documented in the HPI. ROS Other: All systems not noted in ROS Statement are negative. Past Medical History Past Medical History: Diabetes Mellitus, Osteoarthritis (OA) Additional Past Medical History / Comment(s): Hx. of heavy menses over greater than a year,arthritis in knees, gestational diabetes with last , hx IBS, back pain, abdominal hernia, heartburn & diabetes. Diet controlled diabetes. History of Any Multi-Drug Resistant Organisms: None Reported Past Surgical History: Section, Hysterectomy, Orthopedic Surgery, Tubal Ligation Additional Past Surgical History / Comment(s): emma knee surgery, breast reduction, L knee replacement Past Anesthesia/Blood Transfusion Reactions: Postoperative Nausea & Vomiting (PONV) Additional Past Anesthesia/Blood Transfusion Reaction / Comment(s): Nausea lasts into the next day. Past Psychological History: No Psychological Hx Reported Smoking Status: Former smoker Past Alcohol Use History: None Reported Past Drug Use History: None Reported - Past Family History Mother Family Medical History: Cancer Additional Family Medical History / Comment(s): mother passed from cervical cancer Father Family Medical History: Hypertension General Exam Limitations: no limitations General appearance: alert, in no apparent distress, other (This is a well- developed, well-nourished adult female patient in no acute distress.) ENT exam: Present: normal exam, normal oropharynx, mucous membranes moist Respiratory exam: Present: normal lung sounds bilaterally, other (Tachypnea). Absent: respiratory distress, wheezes, rales, rhonchi, stridor Cardiovascular Exam: Present: regular rate, normal rhythm, normal heart sounds. Absent: systolic murmur, diastolic murmur, rubs, gallop, clicks GI/Abdominal exam: Present: soft, normal bowel sounds. Absent: distended, tenderness, guarding, rebound, rigid Neurological exam: Present: alert, oriented X3, CN II-XII intact Psychiatric exam: Present: normal affect, normal mood Skin exam: Present: warm, dry, intact, normal color. Absent: rash Course Vital Signs 09/22/21 17:44 Temperature 101.6 F H Pulse Rate 92 Respiratory 18 Rate Blood Pressure 118/78 O2 Sat by Pulse 94 L Oximetry Medical Decision Making - Medical Decision Making 41-year-old female patient presents to the emergency department today for evaluation of upper respiratory symptoms, cough, shortness of breath, body aches. Physical examination did reveal clear equal lung sounds. Vital signs were within normal range except for elevated temperature. Chest x-ray did show evidence for possible carbon pneumonia. She did test positive for COVID here. She met criteria to receive monoclonal antibodies. She tolerated this infusion without difficulty. She was given IV fluids and other medications. Upon reevaluation states she does feel somewhat better. She'll be discharged follow up with her primary care physician for recheck in 1-2 days. Return parameters were discussed in detail. She verbalizes understanding and agrees with this plan. My attending is Dr. Canales. - Lab Data Lab Results 09/22/21 Range/Units 17:52 Coronavirus (PCR) Detected A (Not Detectd) - Radiology Data Radiology results: report reviewed, image reviewed 4 view x-ray of the chest is obtained. Report reviewed in its entirety. Impression by Dr. Mcintosh shows diffuse interstitial haziness and mild superimposed patchy airspace opacities characteristic of COVID-19 pneumonia. Questionable cardiomegaly. Disposition Clinical Impression: COVID-19 Disposition: HOME SELF-CARE Condition: Good Instructions (If sedation given, give patient instructions): Coronavirus Disease 2019 (COVID-19) Additional Instructions: Increase fluids. Rest. Take medications as directed for symptom relief. Consider obtaining [id number] vitamin C, zinc, vitamin D 3. Follow-up with your primary care physician for recheck in 1-2 days. Return for any new, w orsening, or concerning symptoms. Prescriptions: Ibuprofen [Motrin] 600 mg PO Q8HR PRN #30 tab PRN Reason: Pain guaiFENesin-DM 600/30MG [Mucinex Dm] 2 each PO Q12HR PRN #20 tab PRN Reason: Cough Albuterol Sulfate [Proair Hfa] 1 - 2 puff INHALATION Q6HR PRN #8.5 gm PRN Reason: Shortness Of Breath Is patient prescribed a controlled substance at d/c from ED?: No Referrals: Marielos Godoy MD [Primary Care Provider] - 1-2 days Time of Disposition: 21:25
--- NOTE | 2021-09-22 20:05 | XR ---
EXAMINATION TYPE: XR chest 1V DATE OF EXAM: 09/22/2021 CLINICAL HISTORY: COVID +; Cough. TECHNIQUE: Frontal view of the chest. COMPARISON: 10/02/2018 FINDINGS: The cardiomediastinal silhouette is likely accentuated due to mildly low lung volumes. Pul monary vasculature is normal. There is mild diffuse haziness and superimposed mild focal patchy airsp hazel opacities bilaterally. No pleural effusion. No pneumothorax seen. No acute displaced osseous fra cture. IMPRESSION: 1. Diffuse interstitial haziness and mild superimposed patchy airspace opacities characteristic of C ovid 19 pneumonia. 2. Questionable cardiomegaly.
[2021-09-22 21:30] VITALS: PULSE 86; RESP 16; TEMP 99
== END 2021-09-22 21:30 | disposition home or self-care (01) ==
LOC: EC 16:20
DX: U07.1 COVID-19 (principal); E11.9 Type 2 diabetes mellitus without complications; M19.90 Unspecified osteoarthritis, unspecified site; Z87.891 Personal history of nicotine dependence; Z79.1 Long term (current) use of non-steroidal anti-inflammatories (NSAID); Z79.899 Other long term (current) drug therapy
CPT/HCPCS: 94640; 87635; 71045; 99285; 96374; J1885; J3490

== ENCOUNTER → 2022-03-31 | Outpatient (CLI) | payer MEDICARE, BC, OTHER ==
[2022-03-31 09:17] LABS: HCG,Qualitative Serum Not Detected
[2022-03-31 14:51] LABS: African American GFR (CKD) 104.7 (60.0-200.0); Blood Urea Nitrogen 11.5 mg/dL (9.0-27.0); Non-African American GFR(CKD) 90.3 (60.0-200.0); Potassium 4.1 mmol/L (3.5-5.5)
== END | disposition home or self-care (01) ==
LOC: LABWHC1 08:12
PROVIDERS: ATTEND Dermatology MOHS-Micrographic Surgery
DX: L30.9 Dermatitis, unspecified (principal); L28.0 Lichen simplex chronicus; L68.0 Hirsutism
CPT/HCPCS: 36415; 82565; 84132; 84520; 84703

== ENCOUNTER → 2022-06-16 | Outpatient (CLI) | payer BC, OTHER ==
--- NOTE | 2022-06-16 12:17 | XR ---
EXAMINATION TYPE: XR Hip RT and AP Pelvis DATE OF EXAM: 06/16/2022 COMPARISON: NONE HISTORY: pain TECHNIQUE: A single AP view of the pelvis is obtained. Two views of the right hip are obtained. FINDINGS: There is no acute fracture/dislocation evident in the pelvis. SI joint sclerosis. Hypertro phic change of the acetabulum. No erosive changes. IMPRESSION: 1. Bilateral sacroiliitis. 2. Right hip arthroscopy correlate for femoral acetabular impingement
--- NOTE | 2022-06-16 12:18 | XR ---
EXAMINATION TYPE: XR knee complete RT DATE OF EXAM: 06/16/2022 COMPARISON: NONE HISTORY: Pain TECHNIQUE: Three views are submitted. FINDINGS: There is hypertrophic spurring noted was narrowing in the medial compartment knee joint and patellofe moral joint. Small lateral view is patellar bursa.. Osseous structures are intact. No acute fractur e seen. IMPRESSION: 1. No acute fracture or dislocation. 2. Osteoarthritis.
--- NOTE | 2022-06-16 12:58 | XR ---
EXAM TYPE: LUMBAR SPINE X RAY SERIES COMPARISON: NONE HISTORY: Pain TECHNIQUE: Routine views are submitted. FINDINGS: Alignment is anatomic. The pedicles are intact. The transverse processes are intact. There is dege nerative disc and facet arthropathy L5-S1. Multilevel mild anterior spurring. Bilateral sclerosis of the SI joints. IMPRESSION: Excellent 1. Severe degenerative disease and facet arthropathy L5-S1. Suspect bilateral foraminal encroachment. 2. Bilateral sacroiliitis.
== END | disposition home or self-care (01) ==
LOC: RADXRMAIN 11:36
PROVIDERS: ATTEND Family Medicine
DX: M25.551 Pain in right hip (principal); G89.29 Other chronic pain; M54.50 Low back pain, unspecified; M25.561 Pain in right knee; M19.90 Unspecified osteoarthritis, unspecified site
CPT/HCPCS: 72110; 73502

== ENCOUNTER → 2022-07-19 | Outpatient (CLI) | payer BC, OTHER ==
--- NOTE | 2022-07-19 09:52 | MR ---
EXAMINATION TYPE: MR lumbar spine wo con DATE OF EXAM: 07/19/2022 COMPARISON: Lumbar spine x-ray June 16, 2022 HISTORY: Back pain for one year causing pain into bilateral buttocks and left side per patient, lumba r pain, disc disease. Chronic pain. TECHNIQUE: Multiplanar, multisequence imaging of the lumbar spine is performed without IV contrast. FINDINGS: Sagittal images of the lumbar spine show vertebral body heights to remain satisfactory. The re is disc desiccation with moderate to advanced disc space narrowing L5-S1 level. Vacuum disc phenom enon is present at this level. Slight grade 1 retrolisthesis L5 on S1 along posterior vertebral body margin on MRI images. The conus medullaris is normal in position and signal ending at mid L1 level. H eterogeneous Modic type II endplate changes at the L5-S1 level. Tiny osseous hemangioma superior L4 l evel sagittal image 8. Axial images show T12-L1 through the L4-L5 levels to appear within normal limits. Axial images at the L5-S1 level show small focal central disc protrusion without spinal canal is pres erved.. Mild right-sided anterior inferior neural foraminal narrowing sagittal image 12 and axial mei ge 4 due to right foraminal disc protrusion component. Paraspinal muscle bulk is preserved. IMPRESSION: Degenerative changes lumbosacral junction as detailed above otherwise unremarkable study.
--- NOTE | 2022-07-19 09:58 | MR ---
EXAMINATION TYPE: MR hip RT wo con DATE OF EXAM: 07/19/2022 COMPARISON: Pelvic and right hip x-ray June 16, 2022 HISTORY: Right hip pain Standard multiplanar, multisequence MRI departmental protocol Multiplanar, multisequence images of the pelvis were acquired without contrast. Imaging performed foc using on the right hip. FINDINGS: Symmetric mild to moderate axial joint space loss in both hips is redemonstrated. No signif icant joint effusion identified bilaterally. No suspicious increased T2 signal or edema. No serpigino us low T1 signal to suggest avascular necrosis. No subchondral cystic change or significant spurring is present. Labrum appears grossly intact given limitations of a nonarthrogram study. Increased fluid signal level of the greater trochanters bilaterally. There is no groin hernia or adenopathy identifi ed bilaterally. Symmetric subcentimeter benign appearing groin lymph nodes are noted bilaterally. Mus rajesh bulk in the bilateral thighs are preserved. No suspicious small or large bowel dilatation. Incidental 1.8 cm thin-walled cyst probable prominent follicle in the left ovary axial image 28. No concerning pelvic fluid collection. Uterus is suspected surgically absent. Visualized portion of bladder unremarkable. Sclerosis along the bilateral sacroil iac joints is noted with diminished T1 and T2 signal correlating with x-rays. IMPRESSION: There is evidence of greater trochanteric bursitis bilaterally. Symmetric mild/moderate a xial joint space loss is seen in both hips. Chronic bilateral sacroiliitis is confirmed.
== END | disposition home or self-care (01) ==
LOC: RADMRIMAIN 07:34
PROVIDERS: ATTEND Family Medicine
DX: M51.9 Unspecified thoracic, thoracolumbar and lumbosacral intervertebral disc disorder (principal); M70.61 Trochanteric bursitis, right hip; M47.816 Spondylosis without myelopathy or radiculopathy, lumbar region
CPT/HCPCS: 72148

== ENCOUNTER 2023-04-09 00:26 | Emergency (ER) | payer BC, OTHER ==
[2023-04-09 00:36] VITALS: TEMP 97.7
--- NOTE | 2023-04-09 01:57 | XR ---
EXAM: XR Chest, 2 Views CLINICAL HISTORY: ITS.REASON XR Reason: cough TECHNIQUE: Frontal and lateral views of the chest. COMPARISON: CXR September 22, 2021. FINDINGS: Lungs: Unremarkable. No consolidation. Pleural space: Unremarkable. No pneumothorax. Heart: Unremarkable. No cardiomegaly. Mediastinum: Unremarkable. Bones/joints: Unremarkable. IMPRESSION: Normal chest x-rays.
[2023-04-09] MEDS ORDERED: IPRATROPIUM-ALBUTEROL 3 ML NEB INHALATION STA (02:41)
[2023-04-09] MEDS ORDERED: predniSONE 20 MG TAB PO STA (02:41)
--- NOTE | 2023-04-09 03:24 | ED ---
URI HPI - General Chief Complaint: Upper Respiratory Infection Stated Complaint: Chest Pain Time Seen by Provider: 04/09/23 00:39 Source: patient Mode of arrival: wheelchair Limitations: no limitations - History of Present Illness Initial Comments: This patient is a 42-year-old woman presenting with about 3 days of cough. She states that symptoms started with nasal congestion, then she developed cough. She has occasional white or sometimes light yellow sputum. She has noticed that there is some chest tightness/burning in the substernal area with coughing. She did take a home covid test that was negative. No fevers or chills. No dyspnea. MD Complaint: cough, nasal congestion Onset/Timin -: days(s) Severity: mild Quality: burning Consistency: intermittent Improves With: nothing Worsens With: other (Cough) Context: sick contacts Associated Symptoms: rhinorrhea, nasal congestion, cough - Related Data Home Medications Medication Instructions Recorded Confirmed HYDROcodone/APAP 7.5-325MG [Dendron 1 tab PO QID PRN 09/02/20 09/22/21 7.5-325] Acetaminophen Tab [Tylenol Tab] 500 mg PO Q6H PRN 09/22/21 09/22/21 Ascorbic Acid [Vitamin C] 1,000 mg PO DAILY 09/22/21 09/22/21 Cholecalciferol [Vitamin D3 (25 25 mcg PO DAILY 09/22/21 09/22/21 Mcg = 1000 Iu)] Loratadine [Claritin] 10 mg PO DAILY PRN 09/22/21 09/22/21 Vitamin B Complex 1 cap PO DAILY 09/22/21 09/22/21 Previous Rx's Medication Instructions Recorded Albuterol Sulfate [Proair Hfa] 1 - 2 puff INHALATION Q6HR PRN 09/22/21 #8.5 gm Ibuprofen [Motrin] 600 mg PO Q8HR PRN #30 tab 09/22/21 guaiFENesin-DM 600/30MG [Mucinex 2 each PO Q12HR PRN #20 tab 09/22/21 Dm] Ibuprofen [Motrin] 600 mg PO Q8HR PRN #30 tab 01/11/23 Albuterol Inhaler [Ventolin Hfa 2 puff INHALATION Q4HR PRN #8 gm 04/09/23 Inhaler] predniSONE [Deltasone] 20 mg PO BID #8 tab 04/09/23 Allergies Allergy/AdvReac Type Severity Reaction Status Date / Time No Known Allergies Allergy Verified 04/09/23 00:32 Review of Systems ROS Statement: Those systems with pertinent positive or pertinent negative responses have been documented in the HPI. ROS Other: All systems not noted in ROS Statement are negative. Constitutional: Denies: fever, chills ENT: Reports: congestion Respiratory: Reports: cough. Denies: dyspnea, hemoptysis Cardiovascular: Reports: as per HPI, chest pain. Denies: orthopnea, edema, syncope Gastrointestinal: Denies: abdominal pain, vomiting, diarrhea Genitourinary: Denies: dysuria, hematuria Musculoskeletal: Denies: back pain Skin: Denies: rash Neurological: Denies: headache, weakness Past Medical History Past Medical History: Osteoarthritis (OA) Additional Past Medical History / Comment(s): Hx. of heavy menses over greater than a year,arthritis in knees, gestational diabetes with last , hx IBS, back pain, abdominal hernia, heartburn & diabetes. History of Any Multi-Drug Resistant Organisms: None Reported Past Surgical History: Section, Hysterectomy, Orthopedic Surgery, Tubal Ligation Additional Past Surgical History / Comment(s): emma knee surgery, breast reduction, L knee replacement Past Anesthesia/Blood Transfusion Reactions: Postoperative Nausea & Vomiting (PONV) Additional Past Anesthesia/Blood Transfusion Reaction / Comment(s): Nausea lasts into the next day. Past Psychological History: No Psychological Hx Reported Smoking Status: Former smoker Past Alcohol Use History: None Reported Past Drug Use History: None Reported - Past Family History Mother Family Medical History: Cancer Additional Family Medical History / Comment(s): mother passed from cervical cancer Father Family Medical History: Hypertension General Exam Limitations: no limitations General appearance: alert, in no apparent distress Head exam: Present: atraumatic, normocephalic Eye exam: Present: normal appearance. Absent: scleral icterus, conjunctival injection Neck exam: Present: normal inspection, full ROM Respiratory exam: Present: wheezes. Absent: respiratory distress, rales, rhonchi, stridor, accessory muscle use Cardiovascular Exam: Present: regular rate, normal rhythm, normal heart sounds. Absent: systolic murmur, diastolic murmur, rubs, gallop GI/Abdominal exam: Present: soft. Absent: distended, tenderness, guarding, rebound, rigid, mass Extremities exam: Present: normal inspection, normal capillary refill. Absent: pedal edema, calf tenderness Back exam: Present: normal inspection. Absent: CVA tenderness (R), CVA tenderness (L) Neurological exam: Present: alert Skin exam: Present: warm, dry, intact, normal color. Absent: rash Course Vital Signs 04/09/23 04/09/23 04/09/23 00:32 01:24 03:00 Temperature 97.7 F Pulse Rate 68 68 68 Respiratory 20 18 Rate Blood Pressure 148/81 O2 Sat by Pulse 97 98 Oximetry 04/09/23 04/09/23 03:06 03:38 Temperature Pulse Rate 72 77 Respiratory 16 Rate Blood Pressure 141/83 O2 Sat by Pulse 95 Oximetry Medical Decision Making - Medical Decision Making the patient did have 2 view chest x-ray which I interpreted as not showing acute infiltrate, pneumothorax, or congestive heart failure. This patient is 42-year-old woman presenting with upper respiratory/bronchitis symptoms. She is feeling better following treatment here. We discussed appropriate further care, follow-up, and return parameters. Was pt. sent in by a medical professional or institution (, PA, CAGE LOADER, urgent care, hospital, or [facility]...) When possible be specific @ -[No] Did you speak to anyone other than the patient for history (EMS, parent, family, police, friend...)? What history was obtained from this source @ -[No] Did you review nursing and triage notes (agree or disagree)? Why? @ -[I reviewed and agree with nursing and triage notes] Were old charts reviewed (outside hosp., previous admission, EMS record, old EKG, old radiological studies, urgent care reports/EKG's, [facility] records)? Report findings @ -[No old charts were reviewed] Differential Diagnosis (chest pain, altered mental status, abdominal pain women, abdominal pain men, vaginal bleeding, weakness, fever, dyspnea, syncope, headache, dizziness, GI bleed, back pain, seizure, CVA, palpatations, mental health, musculoskeletal)? @ -The differential diagnosis includes viral syndrome, sinusitis, bronchitis, pneumonia, other causes of reactive airway disease, this includes other conditions. EKG interpreted by me (3pts min.). @ -[none X-rays interpreted by me (1pt min.). @ -[As above CT interpreted by me (1pt min.). @ -[None done] U/S interpreted by me (1pt. min.). @ -[None done] What testing was considered but not performed or refused? (CT, X-rays, U/S, labs)? Why? @ -[None] What meds were considered but not given or refused? Why? @ -[None] Did you discuss the management of the patient with other professionals (professionals i.e. , PA, CAGE LOADER, lab, RT, psych nurse, social media marketing analyst, small animal caretaker, teacher, police officer crime prevention, case folder)? Give summary @ -[No] Was smoking cessation discussed for >3mins.? @ -[No] Was critical care preformed (if so, how long)? @ -[No] Were there social determinants of health that impacted care today? How? (Homelessness, low income, unemployed, alcoholism, drug addiction, transportation, low edu. Level, literacy, decrease access to med. care, longterm, rehab)? @ -[No] Was there de-escalation of care discussed even if they declined (Discuss DNR or withdrawal of care, Hospice)? DNR status @ -[No] What co-morbidities impacted this encounter? (DM, HTN, Smoking, COPD, CAD, Cancer, CVA, ARF, Chemo, Hep., AIDS, mental health diagnosis, sleep apnea, morbid obesity)? @ -[None] Was patient admitted / discharged? Hospital course, mention meds given and route, prescriptions, significant lab abnormalities, going to OR and other pertinent info. @ -[Discharged Undiagnosed new problem with uncertain prognosis? @ -[No] Drug Therapy requiring intensive monitoring for toxicity (Heparin, Nitro, Insulin, Cardizem)? @ -[No] Were any procedures done? @ -[No] Diagnosis/symptom? @ -[Bronchitis Acute, or Chronic, or Acute on Chronic? @ -[Acute Uncomplicated (without systemic symptoms) or Complicated (systemic symptoms)? @ -[Uncomplicated Side effects of treatment? @ -[No] Exacerbation, Progression, or Severe Exacerbation? @ -[No] Poses a threat to life or bodily function? How? (Chest pain, USA, CT, pneumonia, PE, COPD, DKA, ARF, appy, cholecystitis, CVA, Diverticulitis, Homicidal, Suicidal, threat to staff... and all critical care pts) @ -[No] - Lab Data Lab Results 04/09/23 Range/Units 01:16 Influenza Type A (PCR) Not Detected (Not Detectd) Influenza Type B (PCR) Not Detected (Not Detectd) RSV (PCR) Not Detected (Not Detectd) SARS-CoV-2 (PCR) Not Detected (Not Detectd) Disposition Clinical Impression: Bronchitis Disposition: HOME SELF-CARE Condition: Good Instructions (If sedation given, give patient instructions): Acute Bronchitis (ED) Prescriptions: predniSONE [Deltasone] 20 mg PO BID #8 tab Albuterol Inhaler [Ventolin Hfa Inhaler] 2 puff INHALATION Q4HR PRN #8 gm PRN Reason: Wheezing Is patient prescribed a controlled substance at d/c from ED?: No Referrals: Marielos Godoy MD [Primary Care Provider] - 1-2 days
[2023-04-09 03:45] VITALS: BP 141/83; PULSE 77; RESP 16
== END 2023-04-09 03:38 | disposition home or self-care (01) ==
LOC: EC 00:26
DX: J40 Bronchitis, not specified as acute or chronic (principal); Z20.822 Contact with and (suspected) exposure to COVID-19; Z87.891 Personal history of nicotine dependence
CPT/HCPCS: 94640; 87636; 71046; 99285; J7512

== ENCOUNTER → 2023-04-19 | Outpatient (CLI) | payer BC, OTHER ==
--- NOTE | 2023-04-19 08:52 | CT ---
EXAMINATION TYPE: CT abdomen pelvis wo con CT DLP: 1274.5 mGycm, Automated exposure control for dose reduction was used. DATE OF EXAM: 04/19/2023 8:11 AM COMPARISON: CT abdomen pelvis most recent from 07/26/2020 CLINICAL INDICATION:Female, 42 years old with history of R19.00 INTRA ABD AND PELVIC SWELLING; Genera lized abdominal pain. TECHNIQUE: Axial CT of the abdomen and pelvis. Sagittal and coronal reformats were created on a [employer] workstation. Contrast used: None Oral contrast used: without Oral Contrast FINDINGS: LOWER CHEST: Unremarkable ABDOMEN LIVER: Unremarkable GALLBLADDER AND BILE DUCTS: Unremarkable. PANCREAS: Unremarkable. SPLEEN: Unremarkable. ADRENAL GLANDS: Unremarkable. KIDNEYS AND URETERS: No evidence of hydronephrosis or renal calculus. The ureters are unremarkable. PELVIS BLADDER: Unremarkable REPRODUCTIVE: The uterus is not definitively visualized may be surgically absent ABDOMEN & PELVIS STOMACH AND BOWEL: Small hiatal hernia, duodenum is unremarkable No evidence of bowel obstruction. Ap pendix is normal. There is a large stool burden throughout the colon predominantly the right colon. PERITONEUM/RETROPERITONEUM: No evidence of pneumoperitoneum or free fluid. VASCULATURE: No evidence of aortic aneurysm. MUSCULOSKELETAL: No acute osseous abnormalities. Moderate disc degeneration changes are present throu ghout the thoracolumbar spine. LYMPH NODES: No gross evidence for lymphadenopathy. SOFT TISSUE/ABDOMINAL WALL: Fat-containing umbilical hernia. There is diastasis of the rectus abdomin is muscle measuring up to 6.3 cm. IMPRESSION: 1. No evidence for acute abdominal process. No intra-abdominal mass or fluid collection. 2. Diastases of the rectus abdominis muscle. 3. Moderate amount stool in the right colon. 4. Small hiatal hernia
== END | disposition home or self-care (01) ==
LOC: RADCTMAIN 07:52
PROVIDERS: ATTEND Family Medicine
DX: K44.9 Diaphragmatic hernia without obstruction or gangrene (principal); R19.09 Other intra-abdominal and pelvic swelling, mass and lump
CPT/HCPCS: 74176

== ENCOUNTER → 2023-08-08 | Outpatient (CLI) | payer BC, OTHER ==
--- NOTE | 2023-08-08 14:32 | MM ---
Reason for Exam: Additional evaluation requested from abnormal screening. Last screening mammogram was performed less than 1 month ago. Patient History: Menarche at age 10. First Full-Term at age 17. Hysterectomy at age 41. Premenopausal. Patient has history of breast feeding. 2004, Bilateral Reduction. 2012, Excisional Biopsy on the Right side. Risk Values: Jamia 5 year model risk: 1.0%. NCI Lifetime model risk: 9.4%. Tissue Density: Right: There are scattered fibroglandular densities. Findings: Analyzed By CAD. Focal asymmetry within the upper outer right breast at posterior depth disperses with compression. No new suspicious mass or worrisome group of calcifications. Overall Assessment: Benign, BI-RAD 2 Management: Screening Mammogram of both breasts in 1 year. A clinical breast exam by your physician is recommended on an annual basis and results should be correlated with mammographic findings. This exam should not preclude additional follow-up of suspicious palpable abnormalities. Results were given to the patient verbally at the time of exam. Note on Jamia scores and lifetime risk: 1. A Jamia score greater than 3% is considered moderate risk. If this is the case, consider specialist referral to assess eligibility for a risk reducing agent. If overall lifetime risk for the development of breast cancer is 20% or higher, the patient may qualify for future screening with alternating mammogram and breast MRI. Electronically signed and approved by: Baldev Anthony D.O.
== END | disposition home or self-care (01) ==
LOC: RADMAMWWP 14:09
PROVIDERS: ATTEND Family Medicine
DX: R92.8 Other abnormal and inconclusive findings on diagnostic imaging of breast (principal)
CPT/HCPCS: 77061; 77065

== ENCOUNTER 2023-08-22 07:40 | Day surgery (SDC) | payer BC, OTHER ==
[2023-08-16 11:39] VITALS: BMI 44.9
[~2023-08-22 07:40] MED LIST changes: -DEXAMETHASONE SOD PHOSPHATE 4 MG/ML 1 ML VIAL IV ONE; -HYDROmorphone 0.5 MG/0.5 ML SYRINGE IVP PRN; -ONDANSETRON 4 MG/2 ML VIAL IVP ONE
[2023-08-22] MEDS ORDERED: ONDANSETRON 4 MG/2 ML VIAL ONE (08:22)
--- NOTE | 2023-08-22 08:27 | P.GSHP ---
History of Present Illness H&P Date: 08/22/23 CHIEF COMPLAINT: GERD HISTORY OF PRESENT ILLNESS: The patient is a 43-year-old female who presents reports gastroesophageal reflux disease. Upper endoscopy was offered for further evaluation and management. PAST MEDICAL HISTORY: Please see list. PAST SURGICAL HISTORY: Please see list. MEDICATIONS: Please see list. ALLERGIES: Please see list. SOCIAL HISTORY: No illicit drug use FAMILY HISTORY: No reports of Crohn disease or ulcerative colitis. REVIEW OF ORGAN SYSTEMS: CONSTITUTIONAL: No reports of fevers or chills. GI: Denies any blood in stools or constipation. PHYSICAL EXAM: VITAL SIGNS: Stable GENERAL: Well-developed and pleasant in no acute distress. HEENT: No scleral icterus. Extraocular movements grossly intact. Moist buccal mucosa. NECK: Supple without lymphadenopathy. CHEST: Unlabored respirations. Equal bilateral excursions. CARDIOVASCULAR: Regular rate and rhythm. Distal 2+ pulses. ABDOMEN: Soft, nondistended. MUSCULOSKELETAL: No clubbing, cyanosis, or edema. ASSESSMENT: 1. Gastroesophageal reflux disease PLAN: 1. Recommend proceeding with an upper endoscopy Past Medical History Past Medical History: Diabetes Mellitus, Osteoarthritis (OA) Additional Past Medical History / Comment(s): Arthritis in knees, back pain, "bad right hip". Hx Gestational Diabetes with last , since resolved. Hx IBS, abdominal hernia, heartburn. History of Any Multi-Drug Resistant Organisms: None Reported Past Surgical History: Breast Surgery, Section, Hysterectomy, Joint Replacement, Orthopedic Surgery, Tubal Ligation Additional Past Surgical History / Comment(s): Bilateral knee surgery, breast reduction, left knee replacement. Past Anesthesia/Blood Transfusion Reactions: Motion Sickness, Postoperative Nausea & Vomiting (PONV) Additional Past Anesthesia/Blood Transfusion Reaction / Comment(s): Nausea lasts into the next day. Hx Motion Sickness X1 on a cruise. Past Psychological History: No Psychological Hx Reported Smoking Status: Former smoker Past Alcohol Use History: None Reported Additional Past Alcohol Use History / Comment(s): Started smoking at age 14, quit 3 months ago. Past Drug Use History: None Reported - Past Family History Mother Family Medical History: Cancer Additional Family Medical History / Comment(s): Mother passed from cervical cancer. Father Family Medical History: Hypertension Medications and Allergies Home Medications Medication Instructions Recorded Confirmed Type HYDROcodone/APAP 7.5-325MG [[place] 1 tab PO TID PRN 09/02/20 08/22/23 History 7.5-325] Allergies Allergy/AdvReac Type Severity Reaction Status Date / Time No Known Allergies Allergy Verified 08/22/23 08:02
[2023-08-22 08:33] VITALS: TEMP 97.3
[2023-08-22] MEDS ORDERED: LIDOCAINE 1% INJ 10MG/ML (20 ML MDV) ONE (08:34)
[2023-08-22] MEDS ORDERED: fentaNYL (PF) 50 MCG/ML 2 ML AMP ONE (08:34)
[2023-08-22] MEDS ORDERED: MIDAZOLAM 2 MG/2 ML VIAL ONE (08:34)
[2023-08-22] MEDS ORDERED: PROPOFOL 10 MG/ML 20 ML VIAL IV ONE (08:34)
--- NOTE | 2023-08-22 09:00 | P.PCN ---
Date of Procedure: 08/22/23 Description of Procedure: PREOPERATIVE DIAGNOSIS: Gastroesophageal reflux disease. Morbid obesity. POSTOPERATIVE DIAGNOSIS: Gastroesophageal reflux disease. Morbid obesity. Gastritis. OPERATION: Esophagogastroduodenoscopy with biopsies along esophagus, antrum and duodenum SURGEON: Idania Avila MD ANESTHESIA: MAC. INDICATIONS: The patient is a 43-year-old female who presents with reflux disease. Benefits and risks of the procedure were described. Informed consent was obtained. DESCRIPTION: The patient was brought into the endoscopy suite and laid in the left lateral decubitus position. An Olympus gastroscope was passed along the posterior oropharynx down to the distal esophagus where the squamocolumnar junction was encountered at 36 cm from the incisors. The stomach was entered and bile reflux was found. Additional findings are listed below. Biopsies with cold forceps were obtained of the antrum. The first through third portion of the duodenum was examined. Retroflexion of the scope confirmed Hill grade 2 lower esophageal valve. The squamocolumnar junction demonstrated LA grade B erosive esophagitis. The stomach was desufflated. The patient tolerated the procedure well. FINDINGS: Squamocolumnar junction 36 cm from the incisors. Diaphragmatic hiatus at 36 cm. Hill grade 2 lower esophageal valve. LA grade B erosive esophagitis. Biopsies obtained of the duodenum and esophagus Chronic gastritis with biopsies obtained. RECOMMENDATIONS: Upper endoscopy as needed. Follow-up at the [facility] Plan - Discharge Summary Discharge Rx Participant: Yes New Discharge Prescriptions: Continue HYDROcodone/APAP 7.5-325MG [[place] 7.5-325] 1 tab PO TID PRN PRN Reason: Pain Discharge Medication List HYDROcodone/APAP 7.5-325MG [[place] 7.5-325] 1 tab PO TID PRN 09/02/20 [History] Follow up Appointment(s)/Referral(s): [facility] [place], [place] [NON-STAFF] - 09/05/23 Patient Instructions/Handouts: Gastritis (DC) Discharge Disposition: HOME SELF-CARE
[2023-08-22 09:10] VITALS: BP 109/71; PULSE 67; RESP 16
== END 2023-08-22 09:40 | disposition home or self-care (01) ==
LOC: ORWHC2ENDO 07:40
PROVIDERS: ATTEND Surgery Plastic and Reconstructive Surgery
DX: K29.50 Unspecified chronic gastritis without bleeding (principal); K21.00 Gastro-esophageal reflux disease with esophagitis, without bleeding; E66.01 Morbid (severe) obesity due to excess calories; Z68.41 Body mass index [BMI] 40.0-44.9, adult; E11.9 Type 2 diabetes mellitus without complications; M19.90 Unspecified osteoarthritis, unspecified site; Z90.710 Acquired absence of both cervix and uterus; Z98.891 History of uterine scar from previous surgery; Z98.890 Other specified postprocedural states; Z98.51 Tubal ligation status; Z87.891 Personal history of nicotine dependence; Z82.49 Family history of ischemic heart disease and other diseases of the circulatory system; Z79.899 Other long term (current) drug therapy
CPT/HCPCS: 88305; 43239; J2250; J2405; J2001; J3010; J2704

== ENCOUNTER → 2023-09-06 | Outpatient (CLI) | payer BC, OTHER ==
[2023-09-06 08:27] VITALS: BP 147/82; PULSE 75; RESP 15; TEMP 98.7
--- NOTE | 2023-09-06 12:25 | P.PAINPG ---
PQRS Measure Charge Sheet Comment: HISTORY OF PRESENT ILLNESS: A 43 yr old female as a referral from Dr Parks presents today w severe and chronic R hip pain x 1 yr secondary to Trochanteric Bursitis for evaluation. Pt states pain level is provoked at 10 /10 in intensity, constant, localized in the R hip, achy in character w shooting pain towards the R knee. Pain is provoked by standing and over activity. Pain is alleviated by heat, ice, PT x 4 wks in Jan 2023, medications ([place] 7.5/325mg), repositioning and rest. PMH: OA, DM II, IBS PSH: Breast Surgery, Section, Hysterectomy, BL Knee Replacement, Orthopedic Surgery, Tubal Ligation SH: Former tobacco user, No ETOH abuse, +Cannabis recreationally FH: Mo- Cervical CA. Fa- HTN. All: See list Meds: See list REVIEW OF ORGAN SYSTEMS: CONSTITUTIONAL: No fevers or chills. No recent weight loss. NEUROLOGICAL: + numbness and tingling along the distal extremities. No seizure disorders or headaches. MUSCULOSKELETAL: + pain PSYCHIATRIC: Denies current depression or suicidal thoughts. Physical Examinations : Constitutional : Cooperative , not in acute distress . Neurologic : Cranial nerve II to XII intact. No focal neurological deficits. Psychiatric : alert & oriented x 3. Matching mood & appropriate affect. Judgment & insight intact. Musculoskeletal : Cervical Spine Motor strength in the deltoid and biceps: Normal right side. Normal Left side Motor strength biceps and the wrist extensors: Normal right side . Normal left side Motor strength in the triceps muscle: Normal right side. Normal left side Deep tendon reflexes: Normal at the biceps. Normal at Brachioradialis. Normal at triceps Vertebral body tenderness to deep palpation over Cervical facet loading test: positive bilaterally Spurling test: positive bilaterally Neck distraction test: positive bilaterally Man sign: positive bilaterally Lumbar spine +R Hip Abduction Pain Motor strength lower extremities ,thigh and legs 5/5 Right side , 5/5 Left side Deep tendon reflexes : Normal Knee Jerk. Normal Ankle Jerk Vertebral body tenderness over Piper Test positive Lumbar facet Loading Test: positive Right / positive Left Range of motion of the lumbar spine Flexion 30 degrees, extension 10 degrees Straight Leg Raise test: Left/ Right positive at degree Bela test: positive right / positive left. Severe tenderness over the Sacroiliac joint on the Right / Left sides Gaenslen test: positive bilaterally Seated flexion test: positive bila terally. Sacral spine : Severe tenderness over the Sacroiliac joint: right side / left side Range of motion: Flexion of the lumbar spine <60 degrees Range of motion: Extension of the lumbar spine <20 degrees Gaenslen's Test positive Bela test: positive right side / left side Thigh Thrust Test Sacral Thrust Test Imaging: MRI noncontrast of the right hip from 07/19/22 reviewed MRI noncontrast of the lumbar spine from 07/19/22 reviewed Assessment/ Plan : R Hip Trochanteric Bursitis Recommendation of R hip trochanteric bursa injection. May need a series of injections for optimal pain relief. Risks, benefits of procedure discussed and patient verbalized understanding. Admits to anti- coagulant use or medical history of diabetes. Protocol for discontinuation/ continuation of medications maria teresa procedure discussed. Minimal anesthesia provided, if clinically indicated, consisting of Versed and Fentanyl. All questions answered. I have spent greater than 30 minutes on patient care today. Dr Hoover was available by phone for the evaluation of this patient. The time was used to review the medical records including relevant urine studies and Prescription history (MAPs), review of the available imaging, evaluation and examination of the patient, coordination of care with the medical staff and if applicable referring physicians, as well as creation of the medical record PQRS Narrative: Smoking Status Current some day smoker Home Medications: Ambulatory Orders HYDROcodone/APAP 7.5-325MG [[place] 7.5-325] 1 tab PO TID PRN 09/02/20 Controlled Substance Measures - Controlled Substance Measures Is patient prescribed a controlled substance at discharge?: No
== END ==
LOC: PNWHC3 07:41
PROVIDERS: ATTEND Specialist
DX: G35 Multiple sclerosis (principal); M70.61 Trochanteric bursitis, right hip; M19.90 Unspecified osteoarthritis, unspecified site; E11.9 Type 2 diabetes mellitus without complications; K58.9 Irritable bowel syndrome, unspecified; Z72.0 Tobacco use
CPT/HCPCS: 99211

== ENCOUNTER 2023-10-02 12:47 | Day surgery (SDC) | payer BC, OTHER ==
[2023-10-01 08:56] VITALS: BMI 46.5
[2023-10-02 13:38] VITALS: RESP 16; TEMP 98.1
[2023-10-02] MEDS ORDERED: ROPIVACAINE 5MG/ML 20ML VIAL ONE (14:54)
[2023-10-02] MEDS ORDERED: methylPREDNISolone ACETATE 40 MG/ML 1 ML VIAL ONE (14:54)
--- NOTE | 2023-10-02 15:05 | P.PCN ---
Description of Procedure: Pre OP diagnoses= right trochanteric bursitis . Postoperative diagnosis= same as preop diagnosis Operation= right trochanteric bursa steroid and local anesthetic injection . Anesthesia= topical spray. Complications= none . Description of the procedure= patient had history of severe low back pain and hip pain secondary to trochanteric bursitis for this reason patient was a good candidate to have bilateral trochanteric bursa steroid injection which hopefully it will help his pain, risks and benefits of the procedure including but not limited to risk of infection and bleeding and not complete pain relief and ALLERGIC reaction to medication discussed with the patient and the alternative also discussed with the patient and he agreed with the preceding taken to the operating room placed in prone position or standard monitors applied patient and after induction of anesthesia the back and the hip area prepped with chlorhexidine 3 times, and after spraying with topical anesthetics,, right trochanteric bursa injection at 22-gauge Quincke-type spinal needle advanced slowly 5 ML of Ropivacaine 0.5% mixed with 40 mg of Depo-medrol in 5 mL of normal saline injected after negative aspiration for heme and there was no CSF and there was no paresthesia during the injection and needle removed and a dressing applied and the patient tolerated the procedure well without any complication and she will follow up with the pain clinic in a few weeks and patient discharged home in stable condition
[2023-10-02 15:40] VITALS: BP 113/71; PULSE 61
== END 2023-10-02 15:26 | disposition home or self-care (01) ==
LOC: ORPAIN 12:47
PROVIDERS: ATTEND Pain Medicine Interventional Pain Medicine
DX: M70.61 Trochanteric bursitis, right hip (principal); Z90.710 Acquired absence of both cervix and uterus
CPT/HCPCS: 20610; J1030; J2795

== ENCOUNTER → 2023-10-22 | Outpatient (CLI) | payer BC, OTHER ==
[2023-10-22 08:28] VITALS: BP 120/82; PULSE 97; RESP 15; TEMP 98.3
--- NOTE | 2023-10-22 10:43 | P.PAINPG ---
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 Pt states she experienced 60% pain relief x 3 days s/p procedure. Pt states pain level is provoked at 9 /10 in intensity, constant, localized in the lower lumbar spine, predominantly axial, achy in character w occasional shooting pain towards the RLE. Pain is provoked by standing and over activity. Pain is alleviated by heat, ice, PT x 4 wks in Jan 2023, medications, repositioning and rest. Oswestry axial pain score of 30. Interventional procedures include R hip trochanteric bursa injection Medications include [place] 7.5/325mg, Neurontin #60 REVIEW OF ORGAN SYSTEMS: CONSTITUTIONAL: No fevers or chills. No recent weight loss. NEUROLOGICAL: + numbness and tingling along the distal extremities. No seizure disorders or headaches. MUSCULOSKELETAL: + pain PSYCHIATRIC: Denies current depression or suicidal thoughts. Physical Examinations : Constitutional : Cooperative , not in acute distress . Neurologic : Cranial nerve II to XII intact. No focal neurological deficits. Psychiatric : alert & oriented x 3. Matching mood & appropriate affect. Judgment & insight intact. Musculoskeletal : Cervical Spine Motor strength in the deltoid and biceps: Normal right side. Normal Left side Motor strength biceps and the wrist extensors: Normal right side . Normal left side Motor strength in the triceps muscle: Normal right side. Normal left side Deep tendon reflexes: Normal at the biceps. Normal at Brachioradialis. Normal at triceps Vertebral body tenderness to deep palpation over Cervical facet loading test: positive bilaterally Spurling test: positive bilaterally Neck distraction test: positive bilaterally Man sign: positive bilaterally Lumbar spine +R Hip Abduction Pain Motor strength lower extremities ,thigh and legs 5/5 Right side , 5/5 Left side Deep tendon reflexes : Normal Knee Jerk. Normal Ankle Jerk Vertebral body tenderness over L5 Piper Test positive over R L5- S1 Lumbar facet Loading Test: positive Right / positive Left Range of motion of the lumbar spine Flexion 30 degrees, extension 10 degrees Straight Leg Raise test: Left/ Right positive at degree Bela test: positive right / positive left. Severe tenderness over the Sacroiliac joint on the Right / Left sides Gaenslen test: positive bilaterally Seated flexion test: positive bilaterally. Sacral spine : Severe tenderness over the Sacroiliac joint: right side / left side Range of motion: Flexion of the lumbar spine <60 degrees Range of motion: Extension of the lumbar spine <20 degrees Gaenslen's Test positive Bela test: positive right side / left side Thigh Thrust Test Sacral Thrust Test Imaging: MRI noncontrast of the right hip from 07/19/22 reviewed MRI noncontrast of the lumbar spine from 07/19/22 reviewed Assessment/ Plan : R Hip Trochanteric Bursitis Recommendation of R paramedian MINESH L5-S1. May need a series of injections for optimal pain relief. Risks, benefits of procedure discussed and patient verbalized understanding. Admits to anti- coagulant use or medical history of diabetes. Protocol for discontinuation/ continuation of medications maria teresa pro cedure discussed. All questions answered. I have spent greater than 30 minutes on patient care today. Dr Hoover was available by phone for the evaluation of this patient. The time was used to review the medical records including relevant urine studies and Prescription history (MAPs), review of the available imaging, evaluation and examination of the patient, coordination of care with the medical staff and if applicable referring physicians, as well as creation of the medical record - Pain Location Right Hip Non-Pharmacological Interventions: Heat, Ice, Inactivity, Position/Reposition Pharmacological Interventions: Epidural, PRN Medication PQRS Narrative: Smoking Status Current some day smoker Home Medications: Ambulatory Orders Cholecalciferol [Vitamin D3 (25 Mcg = 1000 Iu)] 25 mcg PO Q3D 10/01/23 diazePAM [Valium] 5 mg PO DAILY PRN 1 Days #2 tab 10/22/23 Controlled Substance Measures - Controlled Substance Measures Is patient prescribed a controlled substance at discharge?: Yes When asked, does pt state using other controlled substances?: No If prescribed controlled substance>3 days was MAPS reviewed?: Prescribed <3 Days
== END ==
LOC: PNWHC3 07:51
PROVIDERS: ATTEND Specialist
DX: M70.61 Trochanteric bursitis, right hip (principal); F17.200 Nicotine dependence, unspecified, uncomplicated
CPT/HCPCS: 99211

== ENCOUNTER 2023-11-13 11:59 | Day surgery (SDC) | payer BC, OTHER ==
[2023-11-13] MEDS ORDERED: IOPAMIDOL M200 10 ML VIAL ONE (12:38)
[2023-11-13] MEDS ORDERED: methylPREDNISolone ACETATE 80 MG/ML 1 ML VIAL ONE (12:38)
[2023-11-13 12:39] VITALS: RESP 16; TEMP 97.5
--- NOTE | 2023-11-13 12:46 | P.PCN ---
Date of Procedure: 11/13/23 Procedure(s) Performed: PREOPERATIVE DIAGNOSIS: 1- Lumbar Degenerative Disc Diseases 2-lumbar foraminal stenosis POSTOPERATIVE DIAGNOSIS: 1-lumbar degenerative disc disease. 2-lumbar foraminal stenosis. PROCEDURE 1. Lumbar epidural steroid injection under fluoroscopic guidance at the L5-S1 level. (Fluoroscopy imaging was available in radiology department) 2. Lumbar epidurogram. ANESTHESIA: Lidocaine 1% 3 and then only. EBL: Minimal PROCEDURE INDICATION: The patient with low back pain and radiculitis symptoms unresponsive to conservative treatment. Fluoroscopy was used to optimize visualization of the needle placement and to maximize safety. PROCEDURE DESCRIPTION / TECHNIQUE: The patient was seen and identified in the preoperative area. Risks, benefits, complications including but not limited to infections ,bleeding ,allergic reaction to the medications ,nerve damage and not complete pain releife , and alternatives were discussed with the patient. The patient agreed to proceed with the procedure and signed the consent, and vital signs were stable. Patient was taken to the OR and time out was completed. The patient was placed in the prone position on procedure table and a pillow was placed under the abdomen to reduce lumbar lordosis. The lumbosacral area was prepped and draped in the usual sterile fashion.ere closely monitored during the procedure. Vital signs was monitered during the entire procedure. Using anterior-posterior fluoroscopy, the L5-S1 interlaminar space was identified and the skin over this site was marked and then infiltrated with 1% lidocaine subcutaneously. Subsequently, a 18-gauge 6 inches long Tuohy epidural needle was inserted and advanced toward the epidural space using the ``Loss of resistance technique and guided by AP and lateral fluoroscopy. The correct needle position in the epidural space was verified with the injection of 2 mL of the water soluble contrast dye Isovue 200 contrast and observing an excellent epidurogram with the epidural spread of the dye, after negative aspiration for blood and CSF and in the absence of paresthesias. Again after negative aspiration, a 6 ml mixture containing 80 mg of Depo-medrol ( Preservetive Free ), and 2 ml of preservative free Normal Saline, and 2 ml of preservative free lidocaine 1% solution was injected and a washout of epidurogram was seen. Needle was withdrawn intact, skin was cleansed, and bandages were applied. COMPLICATIONS: None DISPOSITION / PLANS: The patient was placed in a supine position and transferred to the recovery area in a stable condition for observation. There was no evidence of lower extremity motor or sensory deficit after the procedure. Patient was discharged from the recovery room after meeting discharge criteria. Home discharge instructions were given to the patient by the staff. The patient was reexamined prior to discharge. The patient will schedule a follow up in the clinic in 2-4 weeks.
[2023-11-13] MEDS ORDERED: IV FLUID CONTINUATION 1,000 ML IV ONE (13:12)
[2023-11-13 13:28] VITALS: BP 121/77; PULSE 65
--- NOTE | 2023-11-13 15:50 | FL ---
EXAMINATION TYPE: FL guided pain mgmt statistic DATE OF EXAM: 11/13/2023 FLUOROSCOPY Fluoroscopy time of 2 seconds was used during lumbar epidural injection. 1 image/s document/s the pr ocedure. dap [id number] mGycm2
== END 2023-11-13 13:14 | disposition home or self-care (01) ==
LOC: ORPAIN 11:59
PROVIDERS: ATTEND Specialist
DX: M51.36 Other intervertebral disc degeneration, lumbar region (principal); M48.061 Spinal stenosis, lumbar region without neurogenic claudication
CPT/HCPCS: 62323; J1040; Q9966

== ENCOUNTER → 2023-11-30 | Outpatient (CLI) | payer BC, OTHER ==
--- NOTE | 2023-11-30 16:22 | CT ---
EXAMINATION TYPE: CT brain wo con DATE OF EXAM: 11/30/2023 COMPARISON: None HISTORY: patient states that car door closed on her head yesterday, new onset headache. CT DLP: 1098.8 mGycm. Automated Exposure Control for Dose Reduction was Utilized. TECHNIQUE: CT scan of the head is performed without contrast. FINDINGS: There is no acute intracranial hemorrhage, mass effect, or midline shift identified. The ventricles and sulci are within normal limits in size. The globes are intact and the visualized sin uses are clear. The frontal sinuses are markedly hypoplastic/absent. The calvarium is intact. IMPRESSION: No acute intracranial hemorrhage, mass effect, or midline shift is seen.
== END | disposition home or self-care (01) ==
LOC: RADCTMAIN 15:55
PROVIDERS: ATTEND Family Medicine
DX: S09.90XA Unspecified injury of head, initial encounter (principal); X58.XXXA Exposure to other specified factors, initial encounter
CPT/HCPCS: 70450

== ENCOUNTER → 2023-12-05 | Outpatient (CLI) | payer BC, OTHER ==
[2023-12-05 08:33] VITALS: BP 128/72; PULSE 76; RESP 15; TEMP 97.5
--- NOTE | 2023-12-05 14:37 | P.PAINPG ---
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 Pt states she experienced 40% pain relief x 1 wk s/p procedure. Pt states pain level is provoked at 8 /10 in intensity, constant, localized in the lower lumbar spine, predominantly axial, achy in character w occasional shooting pain towards the RLE. Pain is provoked by standing and over activity. Pain is alleviated by heat & ice, PT x 4 wks in Jan 2023, physician guided exercises stretches since Jan 2023, medications, repositioning and rest. Oswestry axial pain score of 30. Interventional procedures include R hip trochanteric bursa injection, MINESH L5-S1 x1 Medications include [place] 7.5/325mg, Neurontin #60 REVIEW OF ORGAN SYSTEMS: CONSTITUTIONAL: No fevers or chills. No recent weight loss. NEUROLOGICAL: + numbness and tingling along the distal extremities. No seizure disorders or headaches. MUSCULOSKELETAL: + pain PSYCHIATRIC: Denies current depression or suicidal thoughts. Physical Examinations : Constitutional : Cooperative , not in acute distress . Neurologic : Cranial nerve II to XII intact. No focal neurological deficits. Psychiatric : alert & oriented x 3. Matching mood & appropriate affect. Judgment & insight intact. Musculoskeletal : Cervical Spine Motor strength in the deltoid and biceps: Normal right side. Normal Left side Motor strength biceps and the wrist extensors: Normal right side . Normal left side Motor strength in the triceps muscle: Normal right side. Normal left side Deep tendon reflexes: Normal at the biceps. Normal at Brachioradialis. Normal at triceps Vertebral body tenderness to deep palpation over Cervical facet loading test: positive bilaterally Spurling test: positive bilaterally Neck distraction test: positive bilaterally Man sign: positive bilaterally Lumbar spine +R Hip Abduction Pain Motor strength lower extremities ,thigh and legs 5/5 Right side , 5/5 Left side Deep tendon reflexes : Normal Knee Jerk. Normal Ankle Jerk Vertebral body tenderness over L5 Piper Test positive over R L5- S1 Lumbar facet Loading Test: positive Right / positive Left Range of motion of the lumbar spine Flexion 30 degrees, extension 10 degrees Straight Leg Raise test: Left/ Right positive at degree Bela test: positive right / positive left. Severe tenderness over the Sacroiliac joint on the Right / Left sides Gaenslen test: positive bilaterally Seated flexion test: positive bilaterally. Sacral spine : Severe tenderness over the Sacroiliac joint: right side / left side Range of motion: Flexion of the lumbar spine <60 degrees Range of motion: Extension of the lumbar spine <20 degrees Gaenslen's Test positive Bela test: positive right side / left side Thigh Thrust Test Sacral Thrust Test Imaging: MRI noncontrast of the right hip from 07/19/22 reviewed MRI noncontrast of the lumbar spine from 07/19/22 reviewed Assessment/ Plan : R Hip Trochanteric Bursitis Recommendation of R TFESI L5-S1. May need a series of injections for optimal pain relief. Pt seemed disinterested at this time. All questions answered. I have spent greater than 30 minutes on patient care today. Dr Hoover was available by phone for the evaluation of this patient. The time was used to review the medical records including relevant urine studies and Prescription history (MAPs), review of the available imaging, evaluation and examination of the patient, coordination of care with the medical staff and if applicable referring physicians, as well as creation of the medical record PQRS Narrative: Smoking Status Current some day smoker Hx Alcohol Use (MH) No Home Medications: Ambulatory Orders Cholecalciferol [Vitamin D3 (25 Mcg = 1000 Iu)] 25 mcg PO Q3D 10/01/23 diazePAM [Valium] 5 mg PO DAILY PRN 1 Days #2 tab 10/22/23 Controlled Substance Measures - Controlled Substance Measures Is patient prescribed a controlled substance at discharge?: No
== END ==
LOC: PNWHC3 07:17
PROVIDERS: ATTEND Anesthesiology
DX: M70.61 Trochanteric bursitis, right hip (principal); F17.200 Nicotine dependence, unspecified, uncomplicated
CPT/HCPCS: 99211

== ENCOUNTER → 2024-07-08 | Outpatient (CLI) | payer BC, OTHER ==
[2024-07-08 16:57] LABS: Basophils # (A) 0.04 X 10*3/uL (0.00-0.10); Basophils % (A) 0.6 %; Eosinophils # (A) 0.18 X 10*3/uL (0.04-0.35); Eosinophils % (A) 2.5 %; HCT 39.7 % (37.2-46.3); HGB 12.6 g/dL (12.0-15.0); Lymphocytes # (A) 2.17 X 10*3/uL (0.90-5.00); Lymphocytes % (A) 30.7 %; MCH 29.8 pg (27.0-32.0); MCHC 31.7 g/dL (32.0-37.0); MCV 93.9 FL (80.0-97.0); Mean Platelet Volume 10.4 FL (9.5-12.2); Monocytes # (A) 0.55 X 10*3/uL (0.20-1.00); Monocytes % (A) 7.8 %; NRBC Per 100 WBC 0 X 10*3/uL (0.00-0.01); Neutrophils % (A) 58.1 %; Platelet Count 275 X 10*3/uL (140-440); RBC 4.23 X 10*6/uL (4.10-5.20); RDW 13.2 % (11.5-14.5); WBC 7.06 X 10*3/uL (4.50-10.00)
[2024-07-08 17:06] LABS: ALT 21 U/L (8-44); AST 20 U/L (13-35); Albumin 4.1 g/dL (3.8-4.9); Albumin/Globulin Ratio 1.64 Ratio (1.60-3.17); Alkaline Phosphatase 103 U/L (41-126); BUN/Creat Ratio 13.67 Ratio (12.00-20.00); Blood Urea Nitrogen 12.3 mg/dL (9.0-27.0); Calcium 9.3 mg/dL (8.7-10.3); Carbon Dioxide 25.6 mmol/L (21.6-31.8); Chloride 106 mmol/L (96-109); Globulin 2.5 g/dL (1.6-3.3); Glucose 117 mg/dL (70-110); Potassium 4.2 mmol/L (3.5-5.5); Sodium 141 mmol/L (135-145); Total Bilirubin 0.4 mg/dL (0.3-1.2); Total Protein 6.6 g/dL (6.2-8.2)
== END | disposition home or self-care (01) ==
LOC: LABWHC1 07:35
PROVIDERS: ATTEND Orthopaedic Surgery
DX: M17.11 Unilateral primary osteoarthritis, right knee (principal)
CPT/HCPCS: 36415; 80053; 85025; 87070